=== PATIENT | female | born 1935 | race Caucasian/White ===

== ENCOUNTER 2016-07-16 16:20 | Inpatient (IN) | payer MEDICARE ==
[2016-07-16] MEDS ORDERED: Morphine INJ* 4 MG/ML 1 ML CARPUJECT IV ONE (16:36)
[2016-07-16] MEDS ORDERED: Ondansetron INJ* 2 MG/ML VIAL IV ONE (16:38)
[2016-07-16] MEDS ORDERED: Ondansetron INJ* 2 MG/ML VIAL IV PRN (16:52)
[2016-07-16] MEDS ORDERED: Acetaminophen TAB* 325 MG PO PRN (16:52)
[2016-07-16] MEDS ORDERED: NS 0.9% 1000 ML* 1,000 ML IV SCH (17:00)
[2016-07-16 17:28] LABS: Hematocrit 40 % (35-47); Hemoglobin 13.2 g/dl (12.0-16.0); Mean Corpuscular HGB Conc 33 g/dl (31-36); Mean Corpuscular Hemoglobin 31 pg (27-31); Mean Corpuscular Volume 92 fL (80-97); Mean Platelet Volume 8 um3 (7.4-10.4); Red Blood Count 4.31 10^6/ul (4.0-5.4); Red Cell Distribution Width 14 % (10.5-15); White Blood Count 6.1 10^3/ul (3.5-10.8)
[2016-07-16] MEDS ORDERED: Albuterol 2.5 MG/3 ML NEB.SOL* (0.083%) INH PRN (17:30)
[2016-07-16 17:42] LABS: Albumin 3.9 g/dL (3.2-5.2); BUN/Creatinine Ratio 16.7 (8-20); EGFR African American 83.3 (>60); EGFR Non-African American 64.8 (>60); Globulin 2.4 g/dL (2-4); Total Bilirubin 0.5 mg/dL (0.2-1.0); Total Protein 6.3 g/dL (6.4-8.9)
--- NOTE | 2016-07-16 18:34 | ED ---
Orlando Rios Erika, scribed for Asha Clayton MD on 07/16/16 at 1708 . 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 She reports constant pain in the anterior right hip, and state that the leg appears rotated. PSHx valve replacement - porcine. She denies taking a blood thinner. She does report taking metoprolol, albuterol , and Spiriva. Pt lives at the [facility], is a former smoker, and does not drink. Pt is followed by Dr. Blunt. - History of Current Complaint Stated Complaint: HIP/LEG PAIN Time Seen by Provider: 07/16/16 16:30 Hx Obtained From: Patient Mechanism Of Injury: Fall From A Standing Position Onset of Pain: Prior to Arrival Onset/Duration: Still Present Severity Currently: Moderate Timing: Constant Location: Is Discrete @ - right hip Aggravating Factor(s): Movement Able to Bear Weight: No - Allergies/Home Medications Allergies/Adverse Reactions: Allergies Allergy/AdvReac Type Severity Reaction Status Date / Time No Known Allergies Allergy Verified 09/30/14 18:40 Home Medications: Home Medications Metoprolol Succinate XL TAB* [Toprol XL TAB*] 25 mg PO DAILY 07/16/16 [History Confirmed 07/16/16] Tiotropium CAP.INH* [Spiriva CAP.INH*] 1 cap.inh INH DAILY 07/16/16 [History Confirmed 07/16/16] PMH/Surg Hx/FS Hx/Imm Hx Cardiovascular History: Reports: Hx Hypertension, Other Cardiovascular Problems/ Disorders - Open heart surgery Respiratory History: Reports: Hx Asthma, Hx Chronic Obstructive Pulmonary Disease (COPD) Sensory History: Reports: Hx Contacts or Glasses - reading glasses Opthamlomology History: Reports: Hx Contacts or Glasses - reading glasses - Surgical History Surgery Procedure, Year, and Place: Open heart surgery 04/2010 - Family History Known Family History: Positive: Respiratory Disease - Social History Alcohol Use: None Substance Use Type: Reports: None Smoking Status (MU): Former Smoker Review of Systems Negative: Fever Positive: Arthralgia - R hip with rotation All Other Systems Reviewed And Are Negative: Yes Physical Exam Triage Information Reviewed: Yes Vital Signs On Initial Exam: Temp Pulse Resp BP Pulse Ox 98.8 F 70 18 171/86 93 07/16/16 16:25 07/16/16 16:25 07/16/16 17:17 07/16/16 16:25 07/16/16 16:25 Vital Signs Reviewed: Yes Appearance: Positive: Well-Appearing, No Pain Distress Skin: Positive: Warm, Skin Color Reflects Adequate Perfusion, Dry Eyes: Positive: EOMI, GENO ENT: Positive: Pharynx normal, TMs normal Neck: Positive: Supple, Nontender Respiratory/Lung Sounds: Positive: Clear to Auscultation, Breath Sounds Present. Negative: Rales, Rhonchi, Wheezes Cardiovascular: Positive: RRR, Other - No gallops. Negative: Murmur, Rub Abdomen Description: Positive: Nontender, Soft, Other: - No rebound. Negative: Distended, Guarding Bowel Sounds: Positive: Present Musculoskeletal: Positive: Other - Hip externally rotated with anterior pain Neurological: Positive: Sensory/Motor Intact, Alert, Oriented to Person Place, Time, Other - CN II-XII intact Psychiatric: Positive: Affect/Mood Appropriate Diagnostics - Vital Signs Vital Signs Temp Pulse Resp BP Pulse Ox 07/16/16 16:25 98.8 F 70 16 171/86 93 - Laboratory Result Diagrams: 07/16/16 17:08 07/16/16 17:08 Lab Statement: Any lab studies that have been ordered have been reviewed, and results considered in the medical decision making process. - Radiology CXR Radiology Interpretation Completed By: ED Physician - Sternal wires. Tortuous aorta. Otherwise non-acute R hip XR Radiology Interpretation Completed By: ED Physician - intertrochanteric fracture - EKG 18:18 Cardiac Rate: NL - at 74 bpm EKG Rhythm: Sinus Rhythm ST Segment: Non-Specific Ectopy: None EKG Interpretation: Inferior Q waves EKG Comparison: No Significant Change - from 10/01/2015 Lower Extremity Course/Dx - Course Course Of Treatment: 81 yo female with mechanical fall sustaining right intertrochanteric fracture. Pt admitted by hospitalist, Dr. Peguero the orthopedist is aware of the admission - Diagnoses Provider Diagnoses: Hip fracture - Physician Notifications Discussed Care of Patient With: Dr. Jacob (hospitalist) at 16:49 - agrees to admit Discharge - Discharge Plan Condition: Stable Disposition: ADMITTED TO [facility] documentation as recorded by the Orlando chavez Erika accurately reflects the service I personally performed and the decisions made by me, Asha Clayton MD.
--- NOTE | 2016-07-16 18:34 | RAD ---
INDICATION: Right hip injury. COMPARISON: There are no prior studies available for comparison. TECHNIQUE: An AP view of the pelvis and frontal and lateral views of the right hip were obtained. FINDINGS: The bones are osteopenic. There is a displaced intertrochanteric fracture of the right femur. The fracture fragments are and there is varus angulation. IMPRESSION: DISPLACED ANGULATED INTERTROCHANTERIC FRACTURE OF THE RIGHT FEMUR.
--- NOTE | 2016-07-16 18:37 | RAD ---
INDICATION: Right femur fracture trauma. COMPARISON: Comparison is made with a prior chest x-ray study from September 30, 2014. TECHNIQUE: A PA view of the chest was obtained. FINDINGS: The patient is status post sternotomy. The heart is moderately enlarged. The lungs are hyperinflated. There are minimal linear densities at the right lung base most consistent with atelectasis or scarring. The lungs are otherwise clear. No pleural effusion is seen. IMPRESSION: POSTSURGICAL CHANGES, CARDIOMEGALY, NO EVIDENCE FOR ACUTE FINDING.
[2016-07-16] MEDS: Morphine INJ* 2 MG/ML 1 ML CARPUJECT IV PRN ×2 (19:26→21:55)
[2016-07-16] MEDS: oxyCODONE/Acetamin 5/325 MG* TAB PO PRN (19:36)
[2016-07-16] MEDS: Albuterol/Ipratropium NEB.SOL* Albuterol 2.5 MG/Ipratropium 0.5 MG 3 ML INH SCH ×2 (19:54→19:55)
--- NOTE | 2016-07-16 21:57 | HP ---
HISTORY AND PHYSICAL: DATE OF ADMISSION: 07/16/16 PRIMARY CARE PROVIDER: Dr. Blunt. ATTENDING PHYSICIAN WHILE IN THE HOSPITAL: Bhavin Jacob MD * (report dictated by García Blackman NP). CONSULTING ORTHOPEDIST: Dr. Peguero. CHIEF COMPLAINT: 1. Fall. 2. Right hip pain. HISTORY OF PRESENT ILLNESS: Mrs. Hairston is an 81-year-old female patient that came in to the hospital today after she unfortunately sustained a fall when she was walking to throw something away outside. She states that the sidewalk that she was on was uneven. She lost her footing, she fell, landed on her hip. She did not hit her head. She says that she was immediately in pain. Two bystanders found her, called 911 and she came to the hospital. There was an obvious deformity to that right leg. She denies any worsening, shortness of breath, states she always feels somewhat shortness of breath and she has COPD, but is not on oxygen and is not on chronic steroids. She says that she can typically walk up a flight of stairs and does not get any chest discomfort. She denies having any recent weight gain and denies having any recent fevers or chills, but does admit to having a cough, but she says the cough is chronic in nature and is nonproductive. She was evaluated in the ER, there was an obvious hip deformity and the hospitalist service was asked to evaluate for admission. PAST MEDICAL HISTORY: Significant for: 1. COPD. 2. Hypertension. 3. History of tremors. 4. History of PFO. 5. Tuberculosis in the past. 6. Pneumonia in the past. 7. History of diastolic CHF. Last EF is 50% to 55%. 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 HOME MEDICATIONS: Include: 1. Avapro 150 mg p.o. daily. 2. Aspirin 162 mg daily. 3. Metoprolol 25 mg daily. 4. Spiriva 1 capsule inhaled daily. 5. Ventolin 2.5 mg inhaled every 4 hours. ALLERGIES TO MEDICATIONS: Include no known drug allergies. FAMILY HISTORY: Her father had TB. SOCIAL HISTORY: She is a former smoker. She does not drink alcohol. She lives at [facility]. Surrogate decision maker is Chance. REVIEW OF SYSTEMS: There is no documented fever. She denied having any significant weight change. There was no double vision. There is no ear discharge. There is no rhinorrhea. There is no sore throat. No thyroid enlargement. She denies having any chest pain. There is no orthopnea. No nocturnal dyspnea. There is no shortness of breath at rest. There is no nausea , no vomiting. No dysuria. No frequency. No loss of consciousness. No pruritus and no skin ulcerations. Review of 14 systems completed, all others negative. PHYSICAL EXAMINATION GENERAL: At this time, Mrs. Hairston is an 81-year-old female patient. She comes into the ER today with complaints of fall. She appears well nourished, well developed, does not appear to be in any acute distress. VITAL SIGNS: Blood pressure 171/86 with a pulse of 70, respirations 18, O2 sat 93%, and temperature 98.8. HEENT: Head is atraumatic and normocephalic. Eyes; EOMs are intact. Sclerae anicteric and not pale. Throat: Oral mucosa appears to be moist. No oropharyngeal erythema. NECK: Supple. LUNGS: Diminished in the bases, otherwise clear. It is a limited exam as she was unable to sit forward due to the pain in her hip. HEART: Heart sounds S1 and S2. Regular rate and rhythm. No murmurs, rubs, or gallops. ABDOMEN: Soft, flat, nontender. Bowel sounds are present. EXTREMITIES: Pulses were 2+ throughout. The right lower extremity was externally rotated, in addition to this was shortened. Distal CSM checks were intact. NEUROLOGIC: She is awake, alert, and oriented x3. Tongue midline. Licensed Nuclear Control Room Operator are equal. No gross focal deficits. SKIN: Grossly intact. LABORATORY DATA AND DIAGNOSTIC STUDIES: Today revealed a WBC of 6.1, RBC of 4.31, hemoglobin 13.2, hematocrit of 40, platelet count of 148. Her INR was 0.88. PTT at 27.1. Sodium 136, potassium of 4, chloride of 102, bicarb 30, BUN 14, creatinine of 0.84, glucose 98. Calcium 9.0. Total bili 0.5. AST 16, ALT 14, albumin was 3.9. Chest x-ray and EKG are pending. Hip x-ray is pending. Old medical records were reviewed. ASSESSMENT AND PLAN: Mrs. Hairston is an 81-year-old female patient coming into the ER today with complaints of fall, now found to have an obvious right hip deformity. She will be admitted under inpatient status for: 1. Presumed hip fracture. At this point, x-rays are pending but it clearly appears that she must have sustained a hip fracture. We will get x-rays and Orthopedics has been consulted. We will await the films. In terms of perioperative risk stratification, I do believe that we will go ahead and get an echo because of the history of aortic valve stenosis. We will check an EKG, in addition to this get a chest x-ray. If these are stable, we could proceed to the OR tomorrow and will continue to follow. 2. Hypertension. Continue her beta-dallas. Hold the Avapro and we can restart in the postoperative setting. 3. History of patent foramen ovale. Again, follow with her primary. 4. History of congestive heart failure. Does not appear to be in acute failure. Appears to be diastolic. We will need to monitor this in the postoperative phase. 5. Chronic obstructive pulmonary disease. Again this is her biggest risk with recovery, but she does not appear to have severe chronic obstructive pulmonary disease. She is no longer smoking. She is not on O2. In addition to this, she is not on chronic steroids. I will continue her nebs and then postoperatively aggressive pulmonary toileting. 6. DVT prophylaxis: She was placed on heparin subcu. 7. Fluids, electrolytes, nutrition: She can have a regular diet and then n.p.o. after midnight. 8. Code status: She is a full code. TIME SPENT: Time spent on the admission was 60 minutes; greater than half the time was spent [id number] with the patient obtaining my history and physical, other half of the time spent going over the plan of care with the patient and implementing plan of care. I did discuss the plan of care with my attending, Dr. Jacob, he is in agreement. GARCÍA BLACKMAN NP CC: Dr. Merlene MD; Dr. Peguero * [id number]/[facility] #: [id number] [facility] MEDICAL CENTERGus
[2016-07-16] MEDS: Heparin VIAL(*) 5000 UNITS/ML VIAL (FIVE THOUSAND) SUBCUT SCH (22:00)
[2016-07-17] MEDS: Albuterol/Ipratropium NEB.SOL* Albuterol 2.5 MG/Ipratropium 0.5 MG 3 ML INH SCH ×7 (00:44→23:17)
[2016-07-17] MEDS: NS 0.9% 1000 ML* 1,000 ML IV SCH ×2 (00:55→11:11)
[2016-07-17] MEDS: oxyCODONE/Acetamin 5/325 MG* TAB PO PRN (01:00)
[2016-07-17] MEDS: Heparin VIAL(*) 5000 UNITS/ML VIAL (FIVE THOUSAND) SUBCUT SCH ×2 (05:37→15:22)
[2016-07-17 07:00] LABS: Hematocrit 38 % (35-47); Hemoglobin 12.6 g/dl (12.0-16.0); Mean Corpuscular HGB Conc 33 g/dl (31-36); Mean Corpuscular Hemoglobin 31 pg (27-31); Mean Corpuscular Volume 93 fL (80-97); Mean Platelet Volume 8 um3 (7.4-10.4); Red Blood Count 4.09 10^6/ul (4.0-5.4); Red Cell Distribution Width 13 % (10.5-15); White Blood Count 6.1 10^3/ul (3.5-10.8)
[2016-07-17] MEDS: Tiotropium CAP.INH* CAP.INH/18 MCG (USE ORDER SET !) INH SCH (07:11)
[2016-07-17 07:17] LABS: BUN/Creatinine Ratio 19.2 (8-20); Calcium 8.5 mg/dL (8.6-10.3); EGFR African American 97.9 (>60); EGFR Non-African American 76.1 (>60); Potassium 4.3 mmol/L (3.5-5.0)
[2016-07-17] MEDS: Morphine INJ* 2 MG/ML 1 ML CARPUJECT IV PRN ×2 (08:58→12:22)
[2016-07-17] MEDS ORDERED: Spiriva Inhaler DEVICE* 1 EACH DEVICE INH ONE (09:00)
[2016-07-17] MEDS ORDERED: Metoprolol Succinate XL TAB* 25 MG PO SCH (09:00)
[2016-07-17] MEDS: Aspirin Low Dose CHEW TAB* 81 MG PO SCH (09:01)
--- NOTE | 2016-07-17 12:33 | ECHO ---
Patient: HELENA PELAEZ [facility] Rec#: [id number] : 1935 Date: 07/17/2016 Age: 81y Height: 167 cm / 65.7 in Weight: 77 kg / 169.7 lbs Sex: F BSA: 1.86 Room#: 336 Admit Date#: 07/16/2016 Type: Inpatient Referring: García Blackman NP Reading: Rasheed Roque DO Reading: Rasheed Roque DO Safety Assistant: Devante Pereyra RDCS Transthoracic Echocardiogram Indication: AVR BP: 135/52 HR: 80 Rhythm: NSR Findings History: PORCINE AVR,CHF,COPD,asthma, HTN Technical Comments: The study quality is good. Left Ventricle: The left ventricular chamber size is normal. Moderate concentric left ventricular hypertrophy is observed. There is normal left ventricular systolic function. The estimated ejection fraction is 60-65%. Ventricular septal wall motion has a post-operative appearance. Abnormal left ventricular diastolic function is observed. Left Atrium: The left atrium is moderate to severely dilated. Right Ventricle: The right ventricular chamber size and systolic function are within normal limits. Right Atrium: The right atrium is moderately dilated. Aortic Valve: The aortic valve structure is not well visualized. There is mild to moderate aortic regurgitation. that appears to be paravalvular and is highly eccentric and may be underestimated in severity. The mean gradient of the aortic valve is 38 mmHg. The peak instantaneous gradient of the aortic valve is 70.4 mmHg. Unable to post-process to calculate acceleration time. VTI DVT 0.25 The highest aortic valve velocity was obtained with the standard probe from the A5C view. A porcine bio-prosthetic aortic valve is present. There is a [address] saritha tissue valve by history Mitral Valve: There is posterior mitral annular calcification.that is moderate The mitral valve leaflets are mildly thickened. There is mild mitral regurgitation. Tricuspid Valve: There is mild tricuspid regurgitation. There is evidence of mild to moderate pulmonary hypertension. There is no tricuspid stenosis. Pulmonic Valve: The pulmonic valve appears normal in structure and function. There is trace to mild pulmonic regurgitation. There is no pulmonic stenosis. Pericardium: There is no pericardial effusion. Aorta: There is no dilatation of the ascending aorta. There is no dilatation of the aortic arch. There is no dilation of the aortic root. Pulmonary Artery: The main pulmonary artery is not well visualized. Venous: The inferior vena cava appears normal in size. There is a greater than 50% respiratory change in the inferior vena cava dimension. Conclusions The left ventricular chamber size is normal. Moderate concentric left ventricular hypertrophy is observed. There is normal left ventricular systolic function. The estimated ejection fraction is 60-65%. The left atrium is moderate to severely dilated. The right ventricular chamber size and systolic function are within normal limits. The right atrium is moderately dilated. A porcine bio-prosthetic aortic valve is present. There is stable paravalvular regurgitation and elevated but stable mean/peak gradients from 09/2014 suggesting stable aortic valve function. There is evidence of mild to moderate pulmonary hypertension. Compared to prior study from 09/2014, no significant changes noted. Measurements Name Value Normal Range RVIDd (AP) 2D 2.4 cm (0.9 - 2.6) RVDdMajor (2D) 2.6 cm (2.2 - 4.4) RAd ISD 4CH 5.9 cm (3.4 - 4.9) RA (A4C)W 4.5 cm (2.9 - 4.6) IVSd (2D) 1.6 cm (0.6 - 1) LVPWd (2D) 1.4 cm (0.6 - 1) LVIDd (2D) 4.8 cm (3.6 - 5.4) LVIDs (2D) 3.8 cm - LV FS (2D) 20 % (25 - 45) Aortic Annulus 2 cm (1.4 - 2.6) Ao root diameter (2D) 2.8 cm (2.1 - 3.5) Ascending Ao 3.4 cm (2.1 - 3.4) Aortic arch 2.8 cm (1.8 - 3.4) LA dimension (AP) 2D 4.7 cm (2.3 - 3.8) LAd ISD 4CH 6.5 cm (2.9 - 5.3) LA ISD 4CH W 4.9 cm (2.5 - 4.5) Name Value Normal Range LA ESV SP 4CH (A/L) 120 ml - LA ESV SP 2CH (A/L) 114 ml - LA ESV BP (A/L) 123 ml - LA ESV BP (A/L) index 66.11 ml/m2 - LA ESV SP 4CH (MOD) 108 ml - LA ESV SP 2CH (MOD) 108 ml - Name Value Normal Range MV E-wave Vmax 0.87 m/sec - MV deceleration time 118 msec - MV A-wave Vmax 0.94 m/sec - MV E:A ratio 0.92 ratio - LV septal e' Vmax 17.4 m/sec - LV lateral e' Vmax 12.4 m/sec - LV E:e' septal ratio 0.05 ratio - LV E:e' lateral ratio 0.07 ratio - Name Value Normal Range AV Vmax 4.2 m/sec - AV VTI 88 cm - AV peak gradient 70.4 mmHg - AV mean gradient 38 mmHg - LVOT diameter 2.2 cm - LVOT Vmax 0.8 m/sec - GRUPO (continuity Vmax) 0.8 cm2 - GRUPO (continuity VTI) 0.87 cm2 - Name Value Normal Range TR Vmax 3.6 m/sec - TR peak gradient 51 mmHg - RVSP 47 mmHg - IVC diameter 1.75 cm - Name Value Normal Range PV Vmax 0.99 m/sec - PV peak gradient 3.95 mmHg -
[2016-07-17] MEDS ORDERED: Famotidine IV* 10 MG/ML 2 ML (20 mg) IV ONE (15:18)
[2016-07-17] MEDS ORDERED: Buffered Lidocaine 1% SYR 3ML* 3 ML/SYR SYRINGE INTRADERM ONE (15:18)
[2016-07-17] MEDS ORDERED: Dexamethasone IV* 4 MG/ML 1 ML (4 MG) IV SLOW PU ONE (15:18)
[2016-07-17] MEDS ORDERED: Ondansetron INJ* 2 MG/ML VIAL IV PRN ×2 (15:20→19:26)
[2016-07-17] MEDS ORDERED: fentaNYL* 50 MCG/ML 2 ML VIAL (100 MCG VIAL) IV PRN (15:20)
[2016-07-17] MEDS ORDERED: PROCHLORPERAZINE INJ 5 MG/ML 2 ML VIAL IV PRN (15:20)
[2016-07-17] MEDS ORDERED: DiMENhydriNATE IV* 50 MG/ML VIAL IV PUSH PRN (15:20)
[2016-07-17] MEDS ORDERED: Bupivacaine 0.5% W/EPI SDV* 30 ML VIAL ONE (16:34)
[2016-07-17] MEDS ORDERED: Midazolam* 1 MG/ML 5 ML VIAL (5 MG) ONE (16:38)
[2016-07-17] MEDS ORDERED: Morphine PF AMP (0.5MG/ML)* 5 MG/10 ML AMP ONE (16:38)
[2016-07-17] MEDS ORDERED: fentaNYL* 50 MCG/ML 2 ML VIAL (100 MCG VIAL) ONE ×2 (16:38→17:45)
[2016-07-17] MEDS ORDERED: KETAMINE HCL* 50 MG/ML 10 ML VIAL ONE (16:39)
[2016-07-17] MEDS ORDERED: ceFAZolin 2 GM PREMIX (*) 2 GM/50 ML BAG IVPB ONE (16:47)
[2016-07-17] MEDS ORDERED: HYDROmorphone INJ* 1 MG/ML CARPUJECT SYRINGE ONE ×2 (18:19→18:52)
[2016-07-17] MEDS ORDERED: oxyCODONE/Acetamin 5/325 MG* TAB PO PRN (19:26)
[2016-07-17] MEDS ORDERED: diPHENhydraMINE IV* 50 MG/ML 1 ml VIAL (BENADRYL) IV PRN (19:26)
[2016-07-17] MEDS ORDERED: Magnesium Hydroxide LIQ* 30 ML UDC PO PRN (19:26)
[2016-07-17] MEDS ORDERED: oxyCODONE TAB* 5 MG TAB PO PRN (19:26)
--- NOTE | 2016-07-17 20:00 | PN ---
Subjective Date of Service: 07/17/16 Interval History: Patient seen and examined at bedside in PACU. Pt is alert and confused. Denies pain. Family History: Unchanged from Admission Social History: Unchanged from Admission Past Medical History: Unchanged from Admission Objective Active Medications: Acetaminophen (Tylenol Tab*) 650 mg PO Q4H PRN Reason: FEVER/PAIN Albuterol (Ventolin 2.5 Mg/3 Ml Neb.Raine*) 2.5 mg INH Q2H PRN Reason: SOB/ WHEEZING Albuterol/Ipratropium (Duoneb Neb.Raine*) 1 neb INH [id number] AWAKE JOSI Aspirin (Aspirin Low Dose Tab*) 162 mg PO DAILY JOSI Diphenhydramine HCl (Benadryl Iv*) 25 mg IV Q6H PRN Reason: itching or insomnia Docusate Sodium (Colace Cap*) 100 mg PO BID [facility] Enoxaparin Sodium (Lovenox(*)) 40 mg SUBCUT Q24H [facility] Heparin Sodium (Porcine) (Heparin Vial(*)) 5,000 units SUBCUT Q8HR JOSI Cefazolin Sodium/Dextrose (Kefzol 1 Gm In Dextrose Duplex (*)) 1 gm in 50 mls @ 200 mls/hr IVPB Q6H [facility] Lactated Ringer's (Lactated Ringers 1000 Ml Bag*) 1,000 mls @ 100 mls/hr IV PER RATE [facility] Magnesium Hydroxide (Milk Of Magnesia Liq*) 30 ml PO Q6H PRN Reason: constipation Metoprolol Succinate (Toprol Xl Tab*) 25 mg PO DAILY [facility] Morphine Sulfate (Morphine Inj (Syringe)*) 2 mg IV Q2H PRN Reason: PAIN Multivitamins (Theragran Tab*) 1 tab PO DAILY [facility] Ondansetron HCl (Zofran Inj*) 4 mg IV Q6H PRN Reason: nausea Oxycodone HCl (Roxycodone Tab*) 10 mg PO Q4H PRN Reason: PAIN - SEVERE Oxycodone/Acetaminophen (Percocet 5/325 Tab*) 1 tab PO Q4H PRN Reason: PAIN Oxycodone/Acetaminophen (Percocet 5/325 Tab*) 2 tab PO Q4H PRN Reason: PAIN - MODERATE Tiotropium Taft (Spiriva Cap.Inh*) 1 cap INH DAILY [facility] Vital Signs 07/16/16 07/16/16 07/16/16 19:55 20:26 21:36 Temperature Pulse Rate 71 Respiratory 20 18 18 Rate Blood Pressure (mmHg) O2 Sat by Pulse 95 Oximetry 07/16/16 07/16/16 07/16/16 21:55 22:55 23:52 Temperature 97.7 F Pulse Rate 69 Respiratory 18 16 17 Rate Blood Pressure 121/65 (mmHg) O2 Sat by Pulse 97 Oximetry 07/17/16 07/17/16 07/17/16 01:00 01:34 03:00 Temperature Pulse Rate Respiratory 20 20 Rate Blood Pressure (mmHg) O2 Sat by Pulse 96 Oximetry 07/17/16 07/17/16 07/17/16 03:39 07:13 07:50 Temperature 97.4 F Pulse Rate 63 75 Respiratory 17 14 18 Rate Blood Pressure 135/52 (mmHg) O2 Sat by Pulse 98 96 Oximetry 07/17/16 07/17/16 07/17/16 07:51 08:58 11:00 Temperature 98.0 F Pulse Rate 76 70 Respiratory 16 20 14 Rate Blood Pressure 130/65 (mmHg) O2 Sat by Pulse 96 100 Oximetry 07/17/16 07/17/16 07/17/16 12:22 12:28 13:22 Temperature 97.8 F Pulse Rate 76 Respiratory 20 16 16 Rate Blood Pressure 138/74 (mmHg) O2 Sat by Pulse 92 Oximetry 07/17/16 07/17/16 15:20 15:22 Temperature Pulse Rate 74 86 Respiratory 14 Rate Blood Pressure 151/82 (mmHg) O2 Sat by Pulse 99 86 Oximetry Oxygen Devices in Use Now: Nasal Cannula - 4L Appearance: NAD, laying in bed Eyes: No Scleral Icterus, PERRLA Ears/Nose/Mouth/Throat: NL Teeth, Lips, Gums, Mucous Membranes Moist Neck: NL Appearance and Movements; NL JVP, Trachea Midline Respiratory: Symmetrical Chest Expansion and Respiratory Effort, Clear to Auscultation Cardiovascular: RRR, - - 2/3 systolic murmur heard best at the right sternal border Abdominal: NL Sounds; No Tenderness; No Distention Skin: - - Dressing to right hip clean, dry and intact Neurological: - - Alert and Confused Lines/Tubes/Other Access: Clean, Dry and Intact Marte - patent, draining clear yellow urine, Clean, Dry and Intact Peripheral IV - site benign Result Diagrams: 07/17/16 06:21 07/17/16 06:21 Assess/Plan/Problems-Billing Assessment: Ms. Hairston is an 81 yo female with PMH significant for COPD, HTN, PFO, diastolic heart failure, S/P AV replacement who presented to the emergency room after a fall with complaints of right hip pain and was found to have a right intertrochanteric fx. - Patient Problems (1) Fracture, intertrochanteric, right femur Code(s): S72.141A - DISPLACED INTERTROCHANTERIC FRACTURE OF RIGHT FEMUR, INIT SNOMED Code(s): 456487790 Comment: - POD, s/p IM nail with Dr. Jon - Trend HH - PT/OT eval - Pain management and bowel regime (2) Heart failure Code(s): I50.9 - HEART FAILURE, UNSPECIFIED SNOMED Code(s): 14895068 Comment: - Diastolic heart failure, echo shows EF 60-65% - Monitor (3) History of hypertension Code(s): Z86.79 - PERSONAL HISTORY OF OTHER DISEASES OF THE CIRCULATORY SYSTEM SNOMED Code(s): 070854665 Comment: - Hypotensive postop - Continue Metoprolol with hold parameters - Continue to home Avapro (4) History of COPD Code(s): Z87.09 - PERSONAL HISTORY OF OTHER DISEASES OF THE RESPIRATORY SYSTEM SNOMED Code(s): 539314684 Comment: - Stable - Continue home medications (5) DVT prophylaxis Code(s): YCO8515 - SNOMED Code(s): 572847491 Comment: - Lovenox per Ortho (6) Full code status Code(s): Z78.9 - OTHER SPECIFIED HEALTH STATUS SNOMED Code(s): 641108635 Status and Disposition: Inpatient. Pt will likely need ELEN.
--- NOTE | 2016-07-17 20:00 | RAD ---
INDICATION: Right hip gamma nail, intraoperative guidance. COMPARISON: Comparison is made with a prior x-ray study of the right hip from July 16, 2016. TECHNIQUE: 1 minute and 45 seconds of intermitted fluoroscopic were provided and 14 spot films of the right hip were obtained in the operating room. FINDINGS: The films demonstrate placement of an intramedullary shemar and gamma nail within the right femoral head. The bones are in normal alignment. IMPRESSION: INTRAOPERATIVE CONTROL FILMS. CPT II Codes: 6045F
[2016-07-17 20:38] LABS: Hematocrit 35 % (35-47); Hemoglobin 11.5 g/dl (12.0-16.0)
[2016-07-17] MEDS ORDERED: Enoxaparin(*) 40 MG/0.4 ML SYR SUBCUT SCH (21:00)
[2016-07-17] MEDS ORDERED: Hetastarch in NS* 500 ML IV ONE (21:17)
[2016-07-17] MEDS ORDERED: Hetastarch 6%* GIVE 500 ML IV ONE (22:00)
[2016-07-17 23:00] LABS: Hematocrit 28 % (35-47); Hemoglobin 9.4 g/dl (12.0-16.0); Mean Corpuscular HGB Conc 33 g/dl (31-36); Mean Corpuscular Hemoglobin 31 pg (27-31); Mean Corpuscular Volume 93 fL (80-97); Mean Platelet Volume 8 um3 (7.4-10.4); Red Blood Count 3.07 10^6/ul (4.0-5.4); Red Cell Distribution Width 13 % (10.5-15); White Blood Count 8.4 10^3/ul (3.5-10.8)
[2016-07-17 23:01] LABS: Add Diff/Slide Review? Slide Review Added; Comments Flag Yes
[2016-07-17] MEDS ORDERED: Enoxaparin(*) 40 MG/0.4 ML SYR ONE (23:45)
[2016-07-17] MEDS: Docusate CAP* 100 MG PO SCH (23:50)
[2016-07-18] MEDS: Enoxaparin(*) 40 MG/0.4 ML SYR SUBCUT SCH (00:21)
[2016-07-18] MEDS: ceFAZolin 1 GM in Dextrose (*) 1 GM/50 ML BAG IVPB SCH ×5 (00:42→23:03)
[2016-07-18] MEDS: Albuterol/Ipratropium NEB.SOL* Albuterol 2.5 MG/Ipratropium 0.5 MG 3 ML INH SCH ×4 (04:31→16:47)
[2016-07-18] MEDS ORDERED: NS 0.9% 500 ML* 500 ML IV ONE (06:00)
[2016-07-18] MEDS ORDERED: NS 0.9% 500 ML* 500 ML IV SCH (06:00)
[2016-07-18 06:07] LABS: BUN/Creatinine Ratio 20.7 (8-20); Calcium 7.6 mg/dL (8.6-10.3); EGFR African American 127.7 (>60); EGFR Non-African American 99.3 (>60); Potassium 4.1 mmol/L (3.5-5.0)
[2016-07-18 06:28] LABS: Hematocrit 25 % (35-47); Hemoglobin 8.5 g/dl (12.0-16.0)
[2016-07-18] MEDS: Metoprolol Succinate XL TAB* 25 MG PO SCH (09:20)
--- NOTE | 2016-07-18 09:34 | PN ---
Progress Note - Progress Note SOAP: Subjective: [Pt was seen sitting up in bed this morning. She states that she is doing very well. She states she has some pain in her hip but that she was expecting that. She states that her only complaint is the clear liquids that she had this morning for breakfast. Pt denies any SOB, CHest pain or calf pain. ] Objective: [General: Pt is alert, awake and oriented. Appears in no acute distress MSK: RLE: Dressing is C/D/I. Pt is able to dorsiflex and planter flex foot. Pt has 2+ DP pulse. Pt has sensation to light touch distal to incision. ] Vital Signs Temp 99.3 F 07/18/16 08:26 Pulse 81 07/18/16 09:00 Resp 20 07/18/16 09:00 BP 96/55 07/18/16 09:00 Pulse Ox 98 07/18/16 09:00 Intake & Output 07/17/16 07/18/16 07/18/16 18:59 06:59 18:59 Intake Total 3190 Output Total 300 1050 Balance -300 2140 Intake: IV Fluids 3190 LR 3190 Output: Marte 300 450 Estimated Blood Loss 600 Assessment: [S/P R intertrochanteric fracture ORIF POD1] Plan: [Continue Abx Continue DVT prophylaxis Start PT/OT PWB RLE ] <Xavier Roman - Last Filed: 07/18/16 09:35> - Progress Note SOAP: Subjective: Pt admitted to the ICU postop because of low BPs in PACU. Received IVF but no PRBCs. Comfortable, eating well this morning, minimal pain Objective: RLE dressing cdi nvid Assessment: POD 1 R hip ORIF IMN Plan: - Follow H/H daily - Tx to floor when BP nl, per ICU staff - Lvx anticoag - PT PWB RLE - pain control <Aldo Jon - Last Filed: 07/18/16 11:44>
--- NOTE | 2016-07-18 09:44 | PN ---
Subjective Date of Service: 07/18/16 Interval History: Pt is feeling ok. She states she does not know if she has pain in her hip because she has not moved. She does c/o her bottom being sore. She states her SOB is at baseline. Objective Active Medications: Acetaminophen (Tylenol Tab*) 650 mg PO Q4H PRN PRN Reason: FEVER/PAIN Albuterol (Ventolin 2.5 Mg/3 Ml Neb.Raine*) 2.5 mg INH Q2H PRN PRN Reason: SOB/WHEEZING Albuterol/Ipratropium (Duoneb Neb.Raine*) 1 neb INH [id number] [facility] Last Admin: 07/18/16 04:31 Dose: Not Given Aspirin (Aspirin Low Dose Tab*) 162 mg PO DAILY [facility] Last Admin: 07/17/16 09:01 Dose: Not Given Docusate Sodium (Colace Cap*) 100 mg PO BID [facility] Last Admin: 07/17/16 23:50 Dose: Not Given Enoxaparin Sodium (Lovenox(*)) 40 mg SUBCUT 0000 [facility] Last Admin: 07/18/16 00:21 Dose: Not Given Cefazolin Sodium/Dextrose (Kefzol 1 Gm In Dextrose Duplex (*)) 1 gm in 50 mls @ 200 mls/hr IVPB Q6H [facility] Last Admin: 07/18/16 05:51 Dose: 200 mls/hr Sodium Chloride (Ns 0.9% 500 Ml Bag*) 500 mls @ 1,000 mls/hr IV .BOLUS [facility] Magnesium Hydroxide (Milk Of Magnesia Liq*) 30 ml PO Q6H PRN PRN Reason: constipation Metoprolol Succinate (Toprol Xl Tab*) 25 mg PO DAILY [facility] Last Admin: 07/18/16 09:20 Dose: Not Given Morphine Sulfate (Morphine Inj (Syringe)*) 2 mg IV Q2H PRN PRN Reason: PAIN Last Admin: 07/17/16 12:22 Dose: 2 mg Multivitamins (Theragran Tab*) 1 tab PO DAILY [facility] Ondansetron HCl (Zofran Inj*) 4 mg IV Q6H PRN PRN Reason: nausea Oxycodone/Acetaminophen (Percocet 5/325 Tab*) 1 tab PO Q4H PRN PRN Reason: PAIN Last Admin: 07/17/16 01:00 Dose: 1 tab Oxycodone/Acetaminophen (Percocet 5/325 Tab*) 2 tab PO Q4H PRN PRN Reason: PAIN - MODERATE Tiotropium [place] (Spiriva Cap.Inh*) 1 cap INH DAILY [facility] Last Admin: 07/17/16 07:11 Dose: 1 cap.inh Vital Signs 07/17/16 07/17/16 07/17/16 11:00 12:22 12:28 Temperature 97.8 F Pulse Rate 70 76 Respiratory 14 20 16 Rate Blood Pressure 138/74 (mmHg) O2 Sat by Pulse 100 92 Oximetry 07/17/16 07/17/16 07/17/16 13:22 15:20 15:22 Temperature Pulse Rate 74 86 Respiratory 16 14 Rate Blood Pressure 151/82 (mmHg) O2 Sat by Pulse 99 86 Oximetry 07/17/16 07/17/16 07/17/16 19:30 19:35 19:40 Temperature 97.2 F Pulse Rate 81 79 84 Respiratory 16 19 19 Rate Blood Pressure 88/56 92/80 77/49 (mmHg) O2 Sat by Pulse 98 92 90 Oximetry 07/17/16 07/17/16 07/17/16 19:45 20:00 20:15 Temperature Pulse Rate 79 75 76 Respiratory 19 18 22 Rate Blood Pressure 77/48 83/57 91/58 (mmHg) O2 Sat by Pulse 91 93 95 Oximetry 07/17/16 07/17/16 07/17/16 20:30 20:45 21:00 Temperature Pulse Rate 75 76 75 Respiratory 17 16 16 Rate Blood Pressure 94/56 90/52 91/55 (mmHg) O2 Sat by Pulse 94 94 94 Oximetry 07/17/16 07/17/16 07/17/16 21:15 21:30 21:45 Temperature 100.2 F Pulse Rate 77 85 81 Respiratory 16 24 16 Rate Blood Pressure 80/51 93/47 83/46 (mmHg) O2 Sat by Pulse 94 94 97 Oximetry 07/17/16 07/17/16 07/17/16 22:00 22:15 22:30 Temperature Pulse Rate 77 78 Respiratory 16 16 Rate Blood Pressure 89/50 85/51 90/56 (mmHg) O2 Sat by Pulse 94 93 Oximetry 07/17/16 07/17/16 07/17/16 22:32 22:45 22:56 Temperature 98 F Pulse Rate 77 80 62 Respiratory 22 14 Rate Blood Pressure 95/53 95/63 (mmHg) O2 Sat by Pulse 93 95 92 Oximetry 07/17/16 07/17/16 07/17/16 23:00 23:02 23:15 Temperature Pulse Rate 83 85 86 Respiratory 21 19 16 Rate Blood Pressure 76/45 87/42 97/47 (mmHg) O2 Sat by Pulse 94 97 93 Oximetry 07/17/16 07/17/16 07/17/16 23:18 23:30 23:46 Temperature Pulse Rate 86 87 86 Respiratory 17 21 19 Rate Blood Pressure 84/55 82/47 (mmHg) O2 Sat by Pulse 96 99 96 Oximetry 07/17/16 07/18/16 07/18/16 23:50 00:00 00:01 Temperature Pulse Rate 88 87 87 Respiratory 27 22 20 Rate Blood Pressure 88/48 90/48 (mmHg) O2 Sat by Pulse 94 95 95 Oximetry 07/18/16 07/18/16 07/18/16 00:32 00:49 01:00 Temperature Pulse Rate 86 86 85 Respiratory 20 16 17 Rate Blood Pressure 84/53 90/55 88/54 (mmHg) O2 Sat by Pulse 95 96 91 Oximetry 07/18/16 07/18/16 07/18/16 01:03 01:20 01:24 Temperature Pulse Rate 71 81 Respiratory 22 17 Rate Blood Pressure 89/51 85/53 (mmHg) O2 Sat by Pulse 95 83 96 Oximetry 07/18/16 07/18/16 07/18/16 01:30 02:00 02:08 Temperature Pulse Rate 78 86 87 Respiratory 19 20 22 Rate Blood Pressure 102/49 109/80 89/66 (mmHg) O2 Sat by Pulse 95 93 94 Oximetry 07/18/16 07/18/16 07/18/16 02:21 02:30 02:33 Temperature Pulse Rate 78 76 85 Respiratory 17 24 29 Rate Blood Pressure 99/52 87/47 88/52 (mmHg) O2 Sat by Pulse 96 97 95 Oximetry 07/18/16 07/18/16 07/18/16 03:00 03:31 03:58 Temperature Pulse Rate 79 85 Respiratory 19 19 24 Rate Blood Pressure 96/69 90/50 (mmHg) O2 Sat by Pulse 97 94 Oximetry 07/18/16 07/18/16 07/18/16 04:00 04:03 04:30 Temperature Pulse Rate 77 98 Respiratory 17 17 22 Rate Blood Pressure 88/54 79/44 (mmHg) O2 Sat by Pulse 94 96 Oximetry 07/18/16 07/18/16 07/18/16 04:31 04:46 05:00 Temperature Pulse Rate 79 73 75 Respiratory 20 16 17 Rate Blood Pressure 82/47 90/37 (mmHg) O2 Sat by Pulse 97 97 97 Oximetry 07/18/16 07/18/16 07/18/16 05:01 05:07 05:09 Temperature Pulse Rate 76 77 77 Respiratory 17 17 18 Rate Blood Pressure 84/41 87/43 84/44 (mmHg) O2 Sat by Pulse 97 96 97 Oximetry 07/18/16 07/18/16 07/18/16 05:17 05:35 06:00 Temperature Pulse Rate 75 78 81 Respiratory 17 18 18 Rate Blood Pressure 79/36 117/63 98/44 (mmHg) O2 Sat by Pulse 95 97 97 Oximetry 07/18/16 07/18/16 07/18/16 06:28 06:30 07:00 Temperature Pulse Rate 80 80 Respiratory 17 18 18 Rate Blood Pressure 88/46 80/45 (mmHg) O2 Sat by Pulse 97 97 Oximetry 07/18/16 07/18/16 07/18/16 07:05 07:30 08:00 Temperature Pulse Rate 76 80 79 Respiratory 16 17 22 Rate Blood Pressure 88/44 89/46 (mmHg) O2 Sat by Pulse 97 97 95 Oximetry 07/18/16 07/18/16 07/18/16 08:26 08:30 09:00 Temperature 99.3 F Pulse Rate 80 81 Respiratory 22 18 Rate Blood Pressure 88/48 96/55 (mmHg) O2 Sat by Pulse 98 98 Oximetry Oxygen Devices in Use Now: Nasal Cannula - 3L-94% Appearance: Elderly female sitting up in bed, NAD Eyes: No Scleral Icterus Ears/Nose/Mouth/Throat: Mucous Membranes Moist Respiratory: Symmetrical Chest Expansion and Respiratory Effort, Clear to Auscultation Cardiovascular: RRR, No Edema, - - II/ systolic murmur heard best at the RUSB Abdominal: NL Sounds; No Tenderness; No Distention Extremities: No Clubbing, Cyanosis Skin: No Rash or Ulcers, No Nodules or Sclerosis Neurological: - - [facility] Result Diagrams: 07/18/16 06:10 07/17/16 22:35 Assess/Plan/Problems-Billing Ms. Hairston is an 81 yo female with PMHx significant for COPD, HTN, PFO, diastolic heart failure, S/P AV replacement who presented to the emergency room after a fall with complaints of right hip pain and was found to have a right intertrochanteric hip fx. - Patient Problems (1) Fracture, intertrochanteric, right femur Current Visit: Yes Status: Acute Code(s): S72.141A - DISPLACED INTERTROCHANTERIC FRACTURE OF RIGHT FEMUR, INIT SNOMED Code(s): 837550155 Comment: POD #1 s/p IM nail with Dr. Jon. Management including DVT prophylaxis per orthopedics. PT/OT. She will likely needs STR-pt is concerned about finances. I will have case management talk with the patient about her benefits. (2) Acute blood loss anemia Current Visit: Yes Status: Acute Code(s): D62 - ACUTE POSTHEMORRHAGIC ANEMIA SNOMED Code(s): 842320009 Comment: H/H has trended down. I do not feel that she needs a transfusion at this time. Follow up H/H tomorrow AM. (3) HTN (hypertension) Current Visit: Yes Status: Acute Code(s): I10 - ESSENTIAL (PRIMARY) HYPERTENSION SNOMED Code(s): 95974356 Comment: Pt was hypertensive prior to surgery but since surgery she has been hypotensive. Her urine output is good. BP slightly improved this AM. Hold antihypertensives for now. Will also hold off on further IVF boluses as her mentation is good and urine output is acceptable. (4) COPD (chronic obstructive pulmonary disease) Current Visit: Yes Status: Acute Code(s): J44.9 - CHRONIC OBSTRUCTIVE PULMONARY DISEASE, UNSPECIFIED SNOMED Code(s): 27663112 Comment: No signs of exacerbation at this time. Continue inhalers and supplemental O2. She does not use O2 at home and her sats are in the low to mid 90's. Will try to wean off O2. (5) Diastolic CHF Current Visit: Yes Status: Acute Code(s): I50.30 - UNSPECIFIED DIASTOLIC ( CONGESTIVE) HEART FAILURE SNOMED Code(s): 262473111 Comment: No signs of fluid overload at this time. Monitor as she has received many boluses for hypotension. (6) DVT prophylaxis Current Visit: Yes Status: Acute Onset Date: 09/30/14 Code(s): IIW8888 - SNOMED Code(s): 414304651 Comment: June (7) Full code status Current Visit: Yes Status: Acute Onset Date: 09/30/14 Code(s): Z78.9 - OTHER SPECIFIED HEALTH STATUS SNOMED Code(s): 326524847 Status and Disposition: .
[2016-07-18] MEDS: Docusate CAP* 100 MG PO SCH ×2 (10:24→22:04)
[2016-07-18] MEDS: Aspirin Low Dose CHEW TAB* 81 MG PO SCH (10:24)
[2016-07-18] MEDS: Vitamin THERAPEUTIC TAB PO SCH (10:24)
[2016-07-18] MEDS: Tiotropium CAP.INH* CAP.INH/18 MCG (USE ORDER SET !) INH SCH (10:24)
[2016-07-18] MEDS: oxyCODONE/Acetamin 5/325 MG* TAB PO PRN (14:54)
[2016-07-18] MEDS ORDERED: NS 0.9% 1000 ML* 1,000 ML IV ONE (16:23)
[2016-07-18] MEDS: Albuterol HFA INHALER* 8 gm MDI INH SCH (22:09)
[2016-07-19] MEDS: Enoxaparin(*) 40 MG/0.4 ML SYR SUBCUT SCH ×2 (00:28→23:46)
[2016-07-19] MEDS: Albuterol HFA INHALER* 8 gm MDI INH SCH ×8 (01:00→23:52)
[2016-07-19] MEDS: oxyCODONE/Acetamin 5/325 MG* TAB PO PRN ×3 (02:45→15:41)
[2016-07-19] MEDS: ceFAZolin 1 GM in Dextrose (*) 1 GM/50 ML BAG IVPB SCH ×4 (05:47→23:47)
--- NOTE | 2016-07-19 06:04 | OP ---
OPERATIVE REPORT: DATE OF OPERATION: 07/17/16 DATE OF : 31 ATTENDING SURGEON: Aldo Jon MD RECEIVING OPERATOR: TARI Kurtz ANESTHESIOLOGIST: Dr. Freddy Knutson. ANESTHESIA: Spinal anesthesia. PRE-OP DIAGNOSIS: Right hip intertrochanteric, displaced, fracture. POST-OP DIAGNOSIS: Right hip intertrochanteric, displaced, fracture. OPERATIVE PROCEDURE: Open reduction internal fixation, right intertrochanteric hip fracture with an intramedullary nail. IV FLUIDS: See anesthesia note. ANTIBIOSIS: 2 g Ancef IV. EBL: Approximately 600 cc. COMPLICATIONS: None. SPECIMENS: None. IMPLANTS: [place] short gamma nail with a lag and locking screw. INDICATIONS FOR PROCEDURE: The patient is an 81-year-old woman, who lives alone, community ambulato r without assist device, who fell while walking on the uneven side walk on the date of admission, . She landed on her right hip when she fell, did not hit her head. Two bystanders found her, called 911, and the patient was brought to the [facility] where x-rays demonstrated a right hip displaced intertrochanteric fracture. She was admitted by the hospitalist service. She has a history of gotti tolic congestive heart failure with the last previous ejection fraction being 50% to 55%. Orthopedi c Surgery, Dr. Peguero, was consulted. The following day, a new echocardiogram showed essentially no change since prior and the medicine service determined that she was medically optimized. The patie nt opted for surgical management. DESCRIPTION OF PROCEDURE: Preoperative written consent. Operative extremity was marked in the preo perative holding. The patient was taken back to the operating room and placed on to the operating r oom table. A spinal anesthesia was placed after general sedation had been provided. The patient wa s positioned on the fracture table appropriately with a perineal post and the right leg in some trac tion. Some light traction was applied to the right lower extremity and perhaps 10 degrees of product managent intern al rotation of the right lower extremity. C-arm was brought in and showed excellent reduction in brianne th AP and lateral plain. C-arm was moved out and the right lower extremity was prepped and draped. Surgical time-out was performed. A small poke hole 8 cm proximal to the proximal tip of the greate r trochanter was made in the skin. A pin was placed through that skin incision to the greater troch anter. C-arm evaluated the position of the pin going into bone. Several adjustments were made with the pin until almost precise placement was made. A #10 blade was used to cut skin as well as hip abd uctor fascia along the pin distal to the poke hole prior incision. I was able to palpate the greate r trochanter well. I adjusted the pin position to make it perfectly ideal. I then used the proxima l femoral reamer to open up the canal. A nail was placed. The guide arm was used to place a pin fo llowed by drilling followed by a lag screw into the femoral head. This screw was compressed or rath er deep bone about it was compressed. Distal locking screw was placed through the guide. Final x-r ays were taken. Irrigated wounds. The hip abductor fascia was closed with figure-of-8 stitches usi ng Vicryl 0 suture as well as a short running stitch, irrigation. Subcutaneous tissue in all 3 incis ions was closed with buried simple stitches using Vicryl 2-0 suture. As well, one stitch was placed in the iliotibial band and second incision, deep with the Vicryl 0 suture. Skin was closed with st aples. Xeroform, 4x4s, ABDs, foam tape were placed. Of note, when the fracture site was reduced at the beginning of the case, I used the contralateral preoperative rest hip x-rays to determine what t he exact shape and orientation of the intertrochanteric region, femoral head, and neck should be. DISPOSITION: Postoperatively, the patient was brought to the PACU with plans to transfer her to the floor when medically stable. Of note, in the PACU, the patient had some low blood pressures and so was sent to the ICU overnight. She received IV fluids, but no blood products. The plan is for the patient to get IV antibiotics x24 hours postoperative followed by short course of Keflex antibiotic s. Lovenox for 4 weeks postoperatively and oral pain medications, narcotics. The patient will foll ow up with me in 10 to 14 days postoperative and will work extensively with physical therapy being p artial weightbearing, right lower extremity. [id number]/[facility] #: [id number]
[2016-07-19 07:46] LABS: Hematocrit 23 % (35-47); Hemoglobin 7.9 g/dl (12.0-16.0); Mean Corpuscular HGB Conc 34 g/dl (31-36); Mean Corpuscular Hemoglobin 31 pg (27-31); Mean Corpuscular Volume 91 fL (80-97); Mean Platelet Volume 8 um3 (7.4-10.4); Red Blood Count 2.53 10^6/ul (4.0-5.4); Red Cell Distribution Width 13 % (10.5-15); White Blood Count 6.1 10^3/ul (3.5-10.8)
[2016-07-19] MEDS: Docusate CAP* 100 MG PO SCH ×2 (09:04→20:45)
[2016-07-19] MEDS: Vitamin THERAPEUTIC TAB PO SCH (09:04)
[2016-07-19] MEDS: Metoprolol Succinate XL TAB* 25 MG PO SCH (09:04)
[2016-07-19] MEDS: Tiotropium CAP.INH* CAP.INH/18 MCG (USE ORDER SET !) INH SCH ×2 (09:04→09:47)
[2016-07-19] MEDS: Aspirin Low Dose CHEW TAB* 81 MG PO SCH (09:04)
--- NOTE | 2016-07-19 11:17 | PN ---
Progress Note - Progress Note SOAP: Subjective: Pt admitted to the [facility] as BPs have normalized. Pt states that she is comfortable this morning. She states that she has not seen PT as of yet and is waiting on him to get moving. She states she is very bored here and would like something to do. Objective: General: Pt is alert, awake and oriented. She appears in no acute distress. RLE: dressing cdi, nvid, Able to dorsiflex and planter flex foot. Vital Signs Temp 99.4 F 07/19/16 07:16 Pulse 95 07/19/16 07:16 Resp 18 07/19/16 09:20 BP 121/59 07/19/16 07:16 Pulse Ox 87 07/19/16 07:16 Intake & Output 07/18/16 07/19/16 07/19/16 18:59 06:59 18:59 Intake Total 600 135 150 Output Total 350 2150 Balance 250 -2014 150 Intake: IV Fluids 500 85 LR 500 55 NS 30 IVPB 100 LR 100 Oral 50 Marte Irrigate Amount 150 Output: Marte 350 2150 Laboratory Results - last 24 hr 07/16/16 07/19/16 17:08 07:24 WBC 6.1 RBC 2.53 L Hgb 7.9 L Hct 23 L MCV 91 MCH 31 MCHC 34 RDW 13 Plt Count 102 L MPV 8 Crossmatch See Detail Assessment: POD 2 R hip ORIF IMN Plan: Continue to Follow H/H daily 1 unit of packed RBCs transfused as Hct has been slowly trending downward today. Appears that it may be more due to hemodilution. Hct is below 24 today. Continue Lvx anticoag PT PWB RLE Continue current pain control
--- NOTE | 2016-07-19 11:40 | PN ---
Subjective Date of Service: 07/19/16 Interval History: Pt is feeling ok. She denies any pain at this time. She just worked with PT and feels that she did well. No SOB. Objective Active Medications: Acetaminophen (Tylenol Tab*) 650 mg PO Q4H PRN PRN Reason: FEVER/PAIN Last Admin: 07/18/16 10:38 Dose: 650 mg Albuterol (Ventolin 2.5 Mg/3 Ml Neb.Raine*) 2.5 mg INH Q2H PRN PRN Reason: SOB/WHEEZING Albuterol (Ventolin Hfa Inhaler*) 2 puff INH [id number] AWAKE [facility] Last Admin: 07/19/16 09:11 Dose: 2 puff Aspirin (Aspirin Low Dose Tab*) 162 mg PO DAILY [facility] Last Admin: 07/19/16 09:04 Dose: 162 mg Docusate Sodium (Colace Cap*) 100 mg PO BID [facility] Last Admin: 07/19/16 09:04 Dose: 100 mg Enoxaparin Sodium (Lovenox(*)) 40 mg SUBCUT 0000 [facility] Last Admin: 07/19/16 00:28 Dose: 40 mg Cefazolin Sodium/Dextrose (Kefzol 1 Gm In Dextrose Duplex (*)) 1 gm in 50 mls @ 200 mls/hr IVPB Q6H [facility] Last Admin: 07/19/16 11:01 Dose: 200 mls/hr Magnesium Hydroxide (Milk Of Magnesia Liq*) 30 ml PO Q6H PRN PRN Reason: constipation Last Admin: 07/19/16 09:05 Dose: 30 ml Metoprolol Succinate (Toprol Xl Tab*) 25 mg PO DAILY [facility] Last Admin: 07/19/16 09:04 Dose: 25 mg Morphine Sulfate (Morphine Inj (Syringe)*) 2 mg IV Q2H PRN PRN Reason: PAIN Last Admin: 07/17/16 12:22 Dose: 2 mg Multivitamins (Theragran Tab*) 1 tab PO DAILY [facility] Last Admin: 07/19/16 09:04 Dose: 1 tab Ondansetron HCl (Zofran Inj*) 4 mg IV Q6H PRN PRN Reason: nausea Oxycodone/Acetaminophen (Percocet 5/325 Tab*) 1 tab PO Q4H PRN PRN Reason: PAIN Last Admin: 07/19/16 07:20 Dose: 1 tab Oxycodone/Acetaminophen (Percocet 5/325 Tab*) 2 tab PO Q4H PRN PRN Reason: PAIN - MODERATE Tiotropium [place] (Spiriva Cap.Inh*) 1 cap INH DAILY [facility] Last Admin: 07/19/16 09:47 Dose: 1 cap.inh Vital Signs 07/18/16 07/18/16 07/18/16 12:00 12:04 12:07 Temperature 99.5 F Pulse Rate 84 84 81 Respiratory 18 18 18 Rate Blood Pressure 76/46 78/65 (mmHg) O2 Sat by Pulse 92 94 96 Oximetry 07/18/16 07/18/16 07/18/16 13:00 14:00 14:35 Temperature Pulse Rate 72 80 88 Respiratory 18 26 20 Rate Blood Pressure 94/50 100/63 (mmHg) O2 Sat by Pulse 98 100 97 Oximetry 07/18/16 07/18/16 07/18/16 14:54 15:00 16:00 Temperature Pulse Rate 86 95 Respiratory 22 26 22 Rate Blood Pressure 93/60 (mmHg) O2 Sat by Pulse 97 97 Oximetry 07/18/16 07/18/16 07/18/16 16:38 17:00 18:00 Temperature Pulse Rate 88 88 88 Respiratory 19 20 25 Rate Blood Pressure 110/42 114/52 109/59 (mmHg) O2 Sat by Pulse 95 97 99 Oximetry 07/18/16 07/18/16 07/18/16 19:00 20:00 20:34 Temperature 99.3 F Pulse Rate 88 89 Respiratory 28 19 Rate Blood Pressure 109/61 120/98 (mmHg) O2 Sat by Pulse 97 98 Oximetry 07/18/16 07/18/16 07/18/16 21:00 22:00 22:10 Temperature 98.2 F Pulse Rate 93 94 Respiratory 20 25 22 Rate Blood Pressure 114/59 136/76 120/64 (mmHg) O2 Sat by Pulse 96 93 Oximetry 07/18/16 07/18/16 07/18/16 22:21 22:36 22:40 Temperature 98.2 F Pulse Rate 94 Respiratory 25 22 22 Rate Blood Pressure 120/64 (mmHg) O2 Sat by Pulse 93 Oximetry 07/19/16 07/19/16 07/19/16 02:45 03:22 07:16 Temperature 98.7 F 99.4 F Pulse Rate 107 95 Respiratory 22 22 16 Rate Blood Pressure 132/76 121/59 (mmHg) O2 Sat by Pulse 93 87 Oximetry 07/19/16 07/19/16 07/19/16 07:20 07:31 09:20 Temperature Pulse Rate Respiratory 18 18 18 Rate Blood Pressure (mmHg) O2 Sat by Pulse Oximetry Oxygen Devices in Use Now: Nasal Cannula - 93%-2L Appearance: Elderly female sitting in a chair, NAD Eyes: No Scleral Icterus Ears/Nose/Mouth/Throat: Mucous Membranes Moist Respiratory: Symmetrical Chest Expansion and Respiratory Effort, Clear to Auscultation - slightly decreased breath sounds in all lung reyes Cardiovascular: RRR, No Edema, - - III/ systolic murmur heard best at the RUSB Abdominal: NL Sounds; No Tenderness; No Distention Extremities: No Clubbing, Cyanosis Skin: No Rash or Ulcers, No Nodules or Sclerosis Neurological: - - slightly confused Result Diagrams: 07/19/16 07:24 07/17/16 22:35 Assess/Plan/Problems-Billing Ms. Hairston is an 81 yo female with PMHx significant for COPD, HTN, PFO, diastolic heart failure, S/P AV replacement who presented to the emergency room after a fall with complaints of right hip pain and was found to have a right intertrochanteric hip fx. - Patient Problems (1) Fracture, intertrochanteric, right femur Current Visit: Yes Status: Acute Code(s): S72.141A - DISPLACED INTERTROCHANTERIC FRACTURE OF RIGHT FEMUR, INIT SNOMED Code(s): 466778297 Comment: POD #2 s/p IM nail with Dr. Jon. Management including DVT prophylaxis per orthopedics. PT/OT. She will likely needs STR. (2) Acute blood loss anemia Current Visit: Yes Status: Acute Code(s): D62 - ACUTE POSTHEMORRHAGIC ANEMIA SNOMED Code(s): 993422115 Comment: H/H has trended down further again today. She will receive 1unit PRBC today. Follow up H/H tomorrow AM. (3) HTN (hypertension) Current Visit: Yes Status: Acute Code(s): I10 - ESSENTIAL (PRIMARY) HYPERTENSION SNOMED Code(s): 53448263 Comment: Hypotension has resolved. Continue to monitor pressures. She received her metoprolol this AM. (4) COPD (chronic obstructive pulmonary disease) Current Visit: Yes Status: Acute Code(s): J44.9 - CHRONIC OBSTRUCTIVE PULMONARY DISEASE, UNSPECIFIED SNOMED Code(s): 05920238 Comment: No signs of exacerbation at this time. Continue inhalers and supplemental O2. She does not use O2 at home and her sats are in the low to mid 90's on supplemental O2. Will try to wean off O2 though she may need continuous O2. (5) Diastolic CHF Current Visit: Yes Status: Acute Code(s): I50.30 - UNSPECIFIED DIASTOLIC ( CONGESTIVE) HEART FAILURE SNOMED Code(s): 553154475 Comment: No signs of fluid overload at this time. Monitor as she has received many boluses for hypotension. (6) DVT prophylaxis Current Visit: Yes Status: Acute Onset Date: 09/30/14 Code(s): ZVK1402 - SNOMED Code(s): 552156867 Comment: Lovenox (7) Full code status Current Visit: Yes Status: Acute Onset Date: 09/30/14 Code(s): Z78.9 - OTHER SPECIFIED HEALTH STATUS SNOMED Code(s): 076538092 Status and Disposition: .
[2016-07-20] MEDS: Albuterol HFA INHALER* 8 gm MDI INH SCH ×6 (03:25→23:41)
[2016-07-20] MEDS: ceFAZolin 1 GM in Dextrose (*) 1 GM/50 ML BAG IVPB SCH ×4 (04:42→23:40)
[2016-07-20 06:48] LABS: Hematocrit 25 % (35-47); Hemoglobin 8.4 g/dl (12.0-16.0); Mean Corpuscular HGB Conc 34 g/dl (31-36); Mean Corpuscular Hemoglobin 31 pg (27-31); Mean Corpuscular Volume 92 fL (80-97); Mean Platelet Volume 8 um3 (7.4-10.4); Red Blood Count 2.71 10^6/ul (4.0-5.4); Red Cell Distribution Width 13 % (10.5-15); White Blood Count 6.4 10^3/ul (3.5-10.8)
[2016-07-20] MEDS: Tiotropium CAP.INH* CAP.INH/18 MCG (USE ORDER SET !) INH SCH (07:28)
[2016-07-20] MEDS: Aspirin Low Dose CHEW TAB* 81 MG PO SCH (07:29)
[2016-07-20] MEDS: Vitamin THERAPEUTIC TAB PO SCH (07:30)
[2016-07-20] MEDS: Metoprolol Succinate XL TAB* 25 MG PO SCH (07:30)
[2016-07-20] MEDS: Docusate CAP* 100 MG PO SCH ×2 (07:30→20:49)
--- NOTE | 2016-07-20 10:55 | PN ---
Progress Note - Progress Note SOAP: Subjective: []Patient seen OOB in chair. Talking with Occupational therapist. Confused at times. Wants to get up and get moving and wants to know when she will be discharged. On NC O2. Having some baseline shortness of breath. Denies chest pain, dizziness. Received 1 Unit PRBC yesterday. Objective: [] Vital Signs Temp 97.5 F 07/20/16 07:18 Pulse 85 07/20/16 10:16 Resp 16 07/20/16 10:16 BP 146/79 07/20/16 07:18 Pulse Ox 95 07/20/16 10:16 Intake & Output 07/19/16 07/20/16 07/20/16 18:59 06:59 18:59 Intake Total 625 1012 200 Output Total 900 725 200 Balance -275 287 0 Weight 181 lb 9.6 oz Intake: IV Fluids 35 52 ABX - CEFAZOLIN 15 NS 20 52 IVPB 60 110 ABX - CEFAZOLIN 60 110 Medicated IV 60 cefazolin 60 Oral 320 850 200 Marte Irrigate Amount 150 Output: Urine 900 725 200 Other: Estimated Void Large Estimated Stool Amount Small # Voids 1 Laboratory Results - last 24 hr 07/16/16 07/19/16 07/20/16 17:08 16:10 06:10 WBC 6.4 RBC 2.71 L Hgb 8.4 L Hct 25 L MCV 92 MCH 31 MCHC 34 RDW 13 Plt Count 116 L MPV 8 Blood Type B Positive Antibody Screen Negative Crossmatch See Detail Transfusion React Rpt Donor Unit # [id number] Post-Trans Blood Type B Positive Post-Trans ASHLEY Negative Reaction Interpretation Right lower extremity with mild diffuse edema. +DF/PF neuro intact calf Non tender and soft Tresa's sign negative Old dried bloody drainage on dressing, incision benign Assessment: []S/P ORIF right hip POD #2 Plan: []Continue PT/OT PWB right lower extremity Lovenox FRANCISCO JAVIER bustamante continue current medical management
[2016-07-20] MEDS: oxyCODONE/Acetamin 5/325 MG* TAB PO PRN ×2 (12:27→20:02)
--- NOTE | 2016-07-20 15:31 | PN ---
Subjective Date of Service: 07/20/16 Interval History: Pt is feeling well. She states she had some SOB earlier but now feels better. She denies any pain. She worked with OT and PT today. Objective Active Medications: Acetaminophen (Tylenol Tab*) 650 mg PO Q4H PRN PRN Reason: FEVER/PAIN Last Admin: 07/18/16 10:38 Dose: 650 mg Albuterol (Ventolin 2.5 Mg/3 Ml Neb.Raine*) 2.5 mg INH Q2H PRN PRN Reason: SOB/WHEEZING Albuterol (Ventolin Hfa Inhaler*) 2 puff INH [id number] AWAKE [facility] Last Admin: 07/20/16 11:24 Dose: 2 puff Aspirin (Aspirin Low Dose Tab*) 162 mg PO DAILY [facility] Last Admin: 07/20/16 07:29 Dose: 162 mg Docusate Sodium (Colace Cap*) 100 mg PO BID [facility] Last Admin: 07/20/16 07:30 Dose: 100 mg Enoxaparin Sodium (Lovenox(*)) 40 mg SUBCUT 0000 [facility] Last Admin: 07/19/16 23:46 Dose: 40 mg Cefazolin Sodium/Dextrose (Kefzol 1 Gm In Dextrose Duplex (*)) 1 gm in 50 mls @ 200 mls/hr IVPB Q6H [facility] Last Admin: 07/20/16 11:24 Dose: 200 mls/hr Magnesium Hydroxide (Milk Of Magnesia Liq*) 30 ml PO Q6H PRN PRN Reason: constipation Last Admin: 07/19/16 09:05 Dose: 30 ml Metoprolol Succinate (Toprol Xl Tab*) 25 mg PO DAILY [facility] Last Admin: 07/20/16 07:30 Dose: 25 mg Morphine Sulfate (Morphine Inj (Syringe)*) 2 mg IV Q2H PRN PRN Reason: PAIN Last Admin: 07/17/16 12:22 Dose: 2 mg Multivitamins (Theragran Tab*) 1 tab PO DAILY [facility] Last Admin: 07/20/16 07:30 Dose: 1 tab Ondansetron HCl (Zofran Inj*) 4 mg IV Q6H PRN PRN Reason: nausea Oxycodone/Acetaminophen (Percocet 5/325 Tab*) 1 tab PO Q4H PRN PRN Reason: PAIN Last Admin: 07/20/16 12:27 Dose: 1 tab Oxycodone/Acetaminophen (Percocet 5/325 Tab*) 2 tab PO Q4H PRN PRN Reason: PAIN - MODERATE Tiotropium [place] (Spiriva Cap.Inh*) 1 cap INH DAILY [facility] Last Admin: 07/20/16 07:28 Dose: 1 cap.inh Vital Signs 07/19/16 07/19/16 07/19/16 15:41 17:41 17:42 Temperature Pulse Rate 97 Respiratory 18 18 18 Rate Blood Pressure (mmHg) O2 Sat by Pulse 97 97 Oximetry 07/19/16 07/19/16 07/19/16 19:26 19:59 20:00 Temperature 98.0 F Pulse Rate 80 56 Respiratory 18 18 18 Rate Blood Pressure 105/70 (mmHg) O2 Sat by Pulse 98 95 Oximetry 07/19/16 07/20/16 07/20/16 23:43 00:00 02:31 Temperature 99.3 F 98.5 F Pulse Rate 90 100 Respiratory 18 20 Rate Blood Pressure 124/62 130/74 (mmHg) O2 Sat by Pulse 99 95 95 Oximetry 07/20/16 07/20/16 07/20/16 07:18 08:00 10:16 Temperature 97.5 F Pulse Rate 95 85 Respiratory 22 16 16 Rate Blood Pressure 146/79 (mmHg) O2 Sat by Pulse 93 95 Oximetry 07/20/16 07/20/16 11:13 12:27 Temperature 97.4 F Pulse Rate 83 Respiratory 18 16 Rate Blood Pressure 112/59 (mmHg) O2 Sat by Pulse 92 Oximetry Oxygen Devices in Use Now: Nasal Cannula - 95%-2L Appearance: Elderly female sitting in a chair, NAD Eyes: No Scleral Icterus Ears/Nose/Mouth/Throat: Mucous Membranes Moist Respiratory: Symmetrical Chest Expansion and Respiratory Effort, Clear to Auscultation Cardiovascular: NL Sounds; No Murmurs; No JVD, RRR, No Edema Abdominal: NL Sounds; No Tenderness; No Distention Extremities: No Clubbing, Cyanosis Skin: No Rash or Ulcers, No Nodules or Sclerosis Neurological: - - pleasantly confused today Result Diagrams: 07/20/16 06:10 07/17/16 22:35 Microbiology and Other Data: Microbiology 07/19/16 16:03 Transfusion Reaction Culture - Preliminary Blood Bag Culture Under Incubation Transfusion Reaction Gram Stain - Final Assess/Plan/Problems-Billing Ms. Yovanny is an 81 yo female with PMHx significant for COPD, HTN, PFO, diastolic heart failure, S/P AV replacement who presented to the emergency room after a fall with complaints of right hip pain and was found to have a right intertrochanteric hip fx. - Patient Problems (1) Fracture, intertrochanteric, right femur Current Visit: Yes Status: Acute Code(s): S72.141A - DISPLACED INTERTROCHANTERIC FRACTURE OF RIGHT FEMUR, INIT SNOMED Code(s): 283157402 Comment: POD #3 s/p IM nail with Dr. Jon. Management including DVT prophylaxis per orthopedics. PT/OT. She will likely needs STR-awaiting PMRU answer then likely application will go out to the [facility]. (2) Acute blood loss anemia Current Visit: Yes Status: Acute Code(s): D62 - ACUTE POSTHEMORRHAGIC ANEMIA SNOMED Code(s): 130787554 Comment: H/H better after 1 unit PRBC yesterday. Follow up H/H tomorrow AM. (3) HTN (hypertension) Current Visit: Yes Status: Acute Code(s): I10 - ESSENTIAL (PRIMARY) HYPERTENSION SNOMED Code(s): 37981376 Comment: BP is under good control. Continue to monitor. (4) COPD (chronic obstructive pulmonary disease) Current Visit: Yes Status: Acute Code(s): J44.9 - CHRONIC OBSTRUCTIVE PULMONARY DISEASE, UNSPECIFIED SNOMED Code(s): 74158245 Comment: No signs of exacerbation at this time. Continue inhalers and supplemental O2. Try to wean off O2 but she may need it continuously. (5) Diastolic CHF Current Visit: Yes Status: Acute Code(s): I50.30 - UNSPECIFIED DIASTOLIC ( CONGESTIVE) HEART FAILURE SNOMED Code(s): 355352989 Comment: No signs of fluid overload at this time. (6) DVT prophylaxis Current Visit: Yes Status: Acute Onset Date: 09/30/14 Code(s): RWP5836 - SNOMED Code(s): 852989691 Comment: Lovenox (7) Full code status Current Visit: Yes Status: Acute Onset Date: 09/30/14 Code(s): Z78.9 - OTHER SPECIFIED HEALTH STATUS SNOMED Code(s): 601604891 Status and Disposition: .
[2016-07-20] MEDS: Enoxaparin(*) 40 MG/0.4 ML SYR SUBCUT SCH (23:41)
[2016-07-21] MEDS: oxyCODONE/Acetamin 5/325 MG* TAB PO PRN ×3 (03:07→19:59)
[2016-07-21] MEDS: Albuterol HFA INHALER* 8 gm MDI INH SCH ×6 (03:10→23:31)
[2016-07-21] MEDS: ceFAZolin 1 GM in Dextrose (*) 1 GM/50 ML BAG IVPB SCH (05:17)
[2016-07-21 06:56] LABS: Hematocrit 24 % (35-47); Hemoglobin 8.1 g/dl (12.0-16.0); Mean Corpuscular HGB Conc 34 g/dl (31-36); Mean Corpuscular Hemoglobin 31 pg (27-31); Mean Corpuscular Volume 91 fL (80-97); Mean Platelet Volume 8 um3 (7.4-10.4); Red Blood Count 2.64 10^6/ul (4.0-5.4); Red Cell Distribution Width 13 % (10.5-15); White Blood Count 4.9 10^3/ul (3.5-10.8)
[2016-07-21 07:10] LABS: EGFR African American 130.3 (>60); EGFR Non-African American 101.3 (>60); Potassium 3.8 mmol/L (3.5-5.0)
[2016-07-21] MEDS: Tiotropium CAP.INH* CAP.INH/18 MCG (USE ORDER SET !) INH SCH (08:33)
[2016-07-21] MEDS: Docusate CAP* 100 MG PO SCH ×2 (08:33→19:59)
[2016-07-21] MEDS: Metoprolol Succinate XL TAB* 25 MG PO SCH (08:33)
[2016-07-21] MEDS: Vitamin THERAPEUTIC TAB PO SCH (08:33)
[2016-07-21] MEDS: Aspirin Low Dose CHEW TAB* 81 MG PO SCH (08:33)
--- NOTE | 2016-07-21 08:50 | PN ---
Progress Note - Progress Note SOAP: Subjective: []Patient seen sitting OOB in chair. Working with LUCERO Wilde on exercises. She states she was up and standing yesterday. Patient is confused at times. States she wants to leave hospital. Denies significant right hip pain. Objective: [] Vital Signs Temp 98.1 F 07/21/16 07:42 Pulse 79 07/21/16 07:42 Resp 18 07/21/16 07:42 BP 127/65 07/21/16 07:42 Pulse Ox 96 07/21/16 07:42 Intake & Output 07/20/16 07/21/16 07/21/16 18:59 06:59 18:59 Intake Total 440 1310 Output Total 500 1550 100 Balance -60 -240 -100 Intake: IV Fluids 100 ABX - CEFAZOLIN 100 Oral 440 1210 Output: Urine 500 1550 100 Other: # Bowel Movements 0 Laboratory Results - last 24 hr 07/19/16 07/21/16 07/21/16 16:10 06:34 06:34 WBC 4.9 RBC 2.64 L Hgb 8.1 L Hct 24 L MCV 91 MCH 31 MCHC 34 RDW 13 Plt Count 137 L MPV 8 Sodium 136 Potassium 3.8 Chloride 102 Carbon Dioxide 32 Anion Gap 2 BUN 8 Creatinine 0.57 Est GFR ( Amer) 130.3 Est GFR (Non-Af Amer) 101.3 BUN/Creatinine Ratio 14.0 Glucose 100 Calcium 8.0 L Transfusion React Rpt Reaction Interpretation right hip incisions are benign old bloody drainage on dressings calf is non tender and soft Tresa's sign negative +DF/PF right ankle Assessment: []s/p ORIF right hip with Gamma nail POD #4 Plan: []Continue PT OT as tolerated PWB right LE Lovenox Change dressing right hip today SNF rehab follow up 10-[address] Jon once discharged.
--- NOTE | 2016-07-21 13:03 | PN ---
Subjective Date of Service: 07/21/16 Interval History: Pt is feeling well. She describes some pain in her distal R thigh after doing a third rep of exercises from the physical therapist. No SOB. No other complaints. Objective Active Medications: Acetaminophen (Tylenol Tab*) 650 mg PO Q4H PRN PRN Reason: FEVER/PAIN Last Admin: 07/18/16 10:38 Dose: 650 mg Albuterol (Ventolin 2.5 Mg/3 Ml Neb.Raine*) 2.5 mg INH Q2H PRN PRN Reason: SOB/WHEEZING Albuterol (Ventolin Hfa Inhaler*) 2 puff INH [id number] AWAKE [facility] Last Admin: 07/21/16 12:08 Dose: 2 puff Aspirin (Aspirin Low Dose Tab*) 162 mg PO DAILY [facility] Last Admin: 07/21/16 08:33 Dose: 162 mg Docusate Sodium (Colace Cap*) 100 mg PO BID [facility] Last Admin: 07/21/16 08:33 Dose: 100 mg Enoxaparin Sodium (Lovenox(*)) 40 mg SUBCUT 0000 [facility] Last Admin: 07/20/16 23:41 Dose: 40 mg Magnesium Hydroxide (Milk Of Magnesia Liq*) 30 ml PO Q6H PRN PRN Reason: constipation Last Admin: 07/19/16 09:05 Dose: 30 ml Metoprolol Succinate (Toprol Xl Tab*) 25 mg PO DAILY [facility] Last Admin: 07/21/16 08:33 Dose: 25 mg Morphine Sulfate (Morphine Inj (Syringe)*) 2 mg IV Q2H PRN PRN Reason: PAIN Last Admin: 07/17/16 12:22 Dose: 2 mg Multivitamins (Theragran Tab*) 1 tab PO DAILY [facility] Last Admin: 07/21/16 08:33 Dose: 1 tab Ondansetron HCl (Zofran Inj*) 4 mg IV Q6H PRN PRN Reason: nausea Oxycodone/Acetaminophen (Percocet 5/325 Tab*) 1 tab PO Q4H PRN PRN Reason: PAIN Last Admin: 07/21/16 07:09 Dose: 1 tab Oxycodone/Acetaminophen (Percocet 5/325 Tab*) 2 tab PO Q4H PRN PRN Reason: PAIN - MODERATE Tiotropium [place] (Spiriva Cap.Inh*) 1 cap INH DAILY [facility] Last Admin: 07/21/16 08:33 Dose: 1 cap.inh Vital Signs 07/20/16 07/20/16 07/20/16 15:49 19:00 19:53 Temperature 97.5 F 100.1 F Pulse Rate 90 92 Respiratory 20 16 16 Rate Blood Pressure 109/53 114/65 (mmHg) O2 Sat by Pulse 96 97 Oximetry 07/20/16 07/20/16 07/20/16 20:00 20:02 22:02 Temperature Pulse Rate 80 Respiratory 20 20 18 Rate Blood Pressure (mmHg) O2 Sat by Pulse 98 Oximetry 07/20/16 07/21/16 07/21/16 23:44 03:03 03:07 Temperature 98.1 F 98.3 F Pulse Rate 87 94 Respiratory 20 20 18 Rate Blood Pressure 144/66 137/72 (mmHg) O2 Sat by Pulse 95 94 Oximetry 07/21/16 07/21/16 07/21/16 05:07 07:09 07:17 Temperature Pulse Rate Respiratory 16 18 18 Rate Blood Pressure (mmHg) O2 Sat by Pulse Oximetry 07/21/16 07/21/16 07/21/16 07:42 09:09 12:07 Temperature 98.1 F 97.5 F Pulse Rate 79 75 Respiratory 18 18 18 Rate Blood Pressure 127/65 123/60 (mmHg) O2 Sat by Pulse 96 95 Oximetry Oxygen Devices in Use Now: Nasal Cannula - 95%-1L Appearance: Elderly female sitting up in a chair, NAD Eyes: No Scleral Icterus Ears/Nose/Mouth/Throat: Mucous Membranes Moist Respiratory: Symmetrical Chest Expansion and Respiratory Effort, Clear to Auscultation Cardiovascular: NL Sounds; No Murmurs; No JVD, RRR, - - mild-moderate edema of the distal posterior thigh and calf Abdominal: NL Sounds; No Tenderness; No Distention Extremities: No Clubbing, Cyanosis Skin: No Rash or Ulcers, No Nodules or Sclerosis Neurological: - - oriented to place and situation Result Diagrams: 07/21/16 06:34 07/21/16 06:34 Microbiology and Other Data: Microbiology 07/19/16 16:03 Transfusion Reaction Culture - Preliminary Blood Bag Culture Under Incubation Transfusion Reaction Gram Stain - Final Assess/Plan/Problems-Billing Ms. Hairston is an 81 yo female with PMHx significant for COPD, HTN, PFO, diastolic heart failure, S/P AV replacement who presented to the emergency room after a fall with complaints of right hip pain and was found to have a right intertrochanteric hip fx. - Patient Problems (1) Fracture, intertrochanteric, right femur Current Visit: Yes Status: Acute Code(s): S72.141A - DISPLACED INTERTROCHANTERIC FRACTURE OF RIGHT FEMUR, INIT SNOMED Code(s): 640509997 Comment: POD #4 s/p IM nail with Dr. Jon. Management including DVT prophylaxis per orthopedics. PT/OT. She will likely needs STR-awaiting PMRU answer then likely application will go out to the [facility]. (2) Acute blood loss anemia Current Visit: Yes Status: Acute Code(s): D62 - ACUTE POSTHEMORRHAGIC ANEMIA SNOMED Code(s): 766062447 Comment: H/H stable today. Continue to monitor. (3) HTN (hypertension) Current Visit: Yes Status: Acute Code(s): I10 - ESSENTIAL (PRIMARY) HYPERTENSION SNOMED Code(s): 86201458 Comment: BP is under good control. Continue to monitor. (4) COPD (chronic obstructive pulmonary disease) Current Visit: Yes Status: Acute Code(s): J44.9 - CHRONIC OBSTRUCTIVE PULMONARY DISEASE, UNSPECIFIED SNOMED Code(s): 08292223 Comment: No signs of exacerbation at this time. Continue inhalers and supplemental O2. She has been weaned down to 1L. Try to wean off completely. (5) Diastolic CHF Current Visit: Yes Status: Acute Code(s): I50.30 - UNSPECIFIED DIASTOLIC ( CONGESTIVE) HEART FAILURE SNOMED Code(s): 570565788 Comment: No signs of fluid overload at this time. (6) DVT prophylaxis Current Visit: Yes Status: Acute Onset Date: 09/30/14 Code(s): YJB3584 - SNOMED Code(s): 409504274 Comment: Lovenox (7) Full code status Current Visit: Yes Status: Acute Onset Date: 09/30/14 Code(s): Z78.9 - OTHER SPECIFIED HEALTH STATUS SNOMED Code(s): 412227711 Status and Disposition: .
[2016-07-21] MEDS: Enoxaparin(*) 40 MG/0.4 ML SYR SUBCUT SCH (23:31)
[2016-07-22] MEDS: oxyCODONE/Acetamin 5/325 MG* TAB PO PRN ×3 (03:19→13:37)
[2016-07-22] MEDS: Albuterol HFA INHALER* 8 gm MDI INH SCH ×4 (03:21→14:57)
[2016-07-22] MEDS: Vitamin THERAPEUTIC TAB PO SCH (08:18)
[2016-07-22] MEDS: Docusate CAP* 100 MG PO SCH (08:18)
[2016-07-22] MEDS: Metoprolol Succinate XL TAB* 25 MG PO SCH (08:18)
[2016-07-22] MEDS: Aspirin Low Dose CHEW TAB* 81 MG PO SCH (08:19)
[2016-07-22] MEDS: Tiotropium CAP.INH* CAP.INH/18 MCG (USE ORDER SET !) INH SCH (08:19)
[2016-07-22 11:50] VITALS: BP 116/63
--- NOTE | 2016-07-22 13:29 | PN ---
Subjective Date of Service: 07/22/16 Interval History: Ms. Hairston states that she is feeling as well as can be expected. She denies complaint of chest pain, SOB, nausea, or abdominal pain. Family History: Unchanged from Admission Social History: Unchanged from Admission Past Medical History: Unchanged from Admission Objective Active Medications: Acetaminophen (Tylenol Tab*) 650 mg PO Q4H PRN Albuterol (Ventolin 2.5 Mg/3 Ml Neb.Raine*) 2.5 mg INH Q2H PRN Albuterol (Ventolin Hfa Inhaler*) 2 puff INH [id number] AWAKE [facility] Aspirin (Aspirin Low Dose Tab*) 162 mg PO DAILY [facility] Docusate Sodium (Colace Cap*) 100 mg PO BID [facility] Enoxaparin Sodium (Lovenox(*)) 40 mg SUBCUT 0000 [facility] Magnesium Hydroxide (Milk Of Magnesia Liq*) 30 ml PO Q6H PRN Metoprolol Succinate (Toprol Xl Tab*) 25 mg PO DAILY [facility] Morphine Sulfate (Morphine Inj (Syringe)*) 2 mg IV Q2H PRN Multivitamins (Theragran Tab*) 1 tab PO DAILY [facility] Ondansetron HCl (Zofran Inj*) 4 mg IV Q6H PRN Oxycodone/Acetaminophen (Percocet 5/325 Tab*) 1 tab PO Q4H PRN Oxycodone/Acetaminophen (Percocet 5/325 Tab*) 2 tab PO Q4H PRN Tiotropium [place] (Spiriva Cap.Inh*) 1 cap INH DAILY [facility] Vital Signs 07/21/16 07/21/16 07/21/16 15:00 15:22 19:33 Temperature 98.0 F 98.3 F Pulse Rate 80 86 84 Respiratory 22 28 24 Rate Blood Pressure 116/61 106/57 (mmHg) O2 Sat by Pulse 94 93 95 Oximetry 07/21/16 07/21/16 07/21/16 19:59 20:00 21:59 Temperature Pulse Rate 90 Respiratory 20 20 18 Rate Blood Pressure (mmHg) O2 Sat by Pulse 88 Oximetry 07/21/16 07/22/16 07/22/16 23:29 00:00 03:19 Temperature 98.7 F Pulse Rate 95 Respiratory 18 20 Rate Blood Pressure 145/76 (mmHg) O2 Sat by Pulse 97 96 Oximetry 07/22/16 07/22/1617 04:27 05:19 07:37 Temperature 98.4 F 97.9 F Pulse Rate 95 81 Respiratory 16 20 16 Rate Blood Pressure 128/59 139/64 (mmHg) O2 Sat by Pulse 96 98 Oximetry 07/22/16 07/22/16 07/22/16 07:56 08:18 09:56 Temperature Pulse Rate Respiratory 20 18 18 Rate Blood Pressure (mmHg) O2 Sat by Pulse Oximetry 07/22/16 11:45 Temperature 97.8 F Pulse Rate 75 Respiratory 16 Rate Blood Pressure 116/63 (mmHg) O2 Sat by Pulse 98 Oximetry Oxygen Devices in Use Now: Nasal Cannula - 95%-1L Appearance: Obese elderly female sitting up in chair in NAD Respiratory: Symmetrical Chest Expansion and Respiratory Effort, Clear to Auscultation Cardiovascular: NL Sounds; No Murmurs; No JVD, No Edema Abdominal: NL Sounds; No Tenderness; No Distention Extremities: No Edema Skin: No Rash or Ulcers Neurological: Alert and Oriented x 3, NL Muscle Strength and Tone Nutrition: Taking PO's Result Diagrams: 07/21/16 06:34 07/21/16 06:34 Microbiology and Other Data: Microbiology 07/19/16 16:03 Transfusion Reaction Culture - Preliminary Blood Bag Culture Under Incubation Transfusion Reaction Gram Stain - Final Assess/Plan/Problems-Billing Ms. Hairston is an 81 yo female with PMHx significant for COPD, HTN, PFO, diastolic heart failure, S/P AV replacement who presented to the emergency room after a fall with complaints of right hip pain and was found to have a right intertrochanteric hip fx. - Patient Problems (1) Fracture, intertrochanteric, right femur Comment: POD #5 s/p IM nail with Dr. Jno. Management including DVT prophylaxis per orthopedics. PT/OT. (2) Acute blood loss anemia Comment: H/H stable. (3) COPD (chronic obstructive pulmonary disease) Comment: No signs of exacerbation at this time. Continue inhalers and supplemental O2 with mobility. SpO2 noted to fall with ambulation per PT (85%) . (4) Diastolic CHF Comment: No signs of fluid overload at this time. (5) HTN (hypertension) Comment: BP is under good control. (6) DVT prophylaxis Comment: Lovenox (7) Full code status Status and Disposition: Discharge to [facility] [place].
--- NOTE | 2016-07-22 14:34 | DS ---
DATE OF ADMISSION: 07/16/2016. DATE OF DISCHARGE: 07/22/2016. ATTENDING PHYSICIAN: Dr. David Albright *(dictation provided by Terese Murphy NP) . PRIMARY DIAGNOSIS: Right hip fracture, status post ORIF. SECONDARY DIAGNOSES: 1. Hypertension. 2. History of patent foramen ovale. 3. History of congestive heart failure. 4. History of COPD. 5. History of tremors. 6. 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 7. History of diastolic congestive heart failure. 8. History of aortic valve replacement, porcine. MEDICATIONS - OUTPATIENT: 1. Avapro 150 mg p.o. daily. 2. Aspirin 162 mg p.o. daily. 3. Metoprolol 25 mg p.o. daily. 4. Spiriva one cap inhaled daily. 5. Ventolin 2.5 mg inhaled q.4 hours. 6. Lovenox 40 mg subcutaneously daily. 7. Oxycodone/acetaminophen 5/325 one tab p.o. q.4 hours prn pain. 8. Tylenol prn pain. HOSPITAL COURSE: Ms. Hairston is an 81-year-old female with a past medical history as outlined above who presented to the emergency room on 07/16/2016 with concern for right hip pain after a fall. Please see the dictated history and physical from García Blackman NP for complete details. In brief, the patient had had a mechanical fall and was found to have a displaced angulated intertrochanteric fracture of the right femur. Ms. Hairston was admitted to the hospital. She did have a transthoracic echocardiogram preoperatively which was read as follows: "Left ventricular chamber size is normal; moderate concentric left ventricular hypertrophy is observed; there is normal left ventricular systolic function; the left atrium is moderate to severely dilated; a porcine bioprosthetic aortic valve is present ; there is stable paravalvular regurgitation and elevated but stable mean peak gradients; compared to prior study from September 2014, no significant change is noted." The patient also had a chest x-ray preoperatively that was read as follows: "Post surgical changes; cardiomegaly; no evidence of acute finding." The patient was taken to the OR the following day, 07/17/2016, with Dr. Aldo Jon for ORIF of the right hip fracture with intramedullary nail. I refer you to his operative note for complete details. In immediate postoperative period, the patient's hemoglobin trended down to 7.9/23. At that time, she was transfused one unit of packed red blood cells. Her hemoglobin has remained stable since then and it is currently 8.1/24 on the day prior to discharge. Ms. Hairston has been participating with physical therapy and has been making slow progress. She has significant anxiety which contributes to her fear with mobility. The patient has been offered and has accepted a bed for subacute rehab at [facility] and will be going there today. Ms. Hairston is doing well and is medically stable for discharge to [facility] to continue rehab in preparation hopefully for return to independent living. DISPOSITION: To [facility]. DIET: Low salt. ACTIVITY: Partial weight bear on the right. FOLLOW-UP: 1. Please follow-up with care providers at [facility] per routine. 2. Please follow-up with Orthopedics in 10 to 14 days from today. 3. Please follow-up with Dr. Blunt per routine after discharge from the [facility]. Approximately 60 minutes were spent in the discharge of this patient, more than half that time was spent with her at the bedside reviewing the events leading up to and during this hospitalization, performing the physical examination and reviewing the plan of care. TERESE MURPHY NP CC: Dr. Blunt * [id number]/[facility] #: [id number] MTDD
== END 2016-07-22 13:40 | DRG 481 ==
LOC: ED 16:20 → OBSVTOIN 16:52 → SSU 16:52 → ICU 07-17 22:35 → UNDODISIN 07-17 22:37 → SSU 07-18 22:36
PROVIDERS: ADMIT Internal Medicine; ATTEND Internal Medicine
PROC: 30233N1 Transfusion of Nonautologous Red Blood Cells into Peripheral Vein, Percutaneous Approach (ICD-10-PCS; principal; 2016-07-16)
PROC: 0QS606Z Reposition Right Upper Femur with Intramedullary Internal Fixation Device, Open Approach (ICD-10-PCS; 2016-07-16)
DX: S72.141A Displaced intertrochanteric fracture of right femur, initial encounter for closed fracture (principal); I50.32 Chronic diastolic (congestive) heart failure; I11.0 Hypertensive heart disease with heart failure; I95.9 Hypotension, unspecified; J44.9 Chronic obstructive pulmonary disease, unspecified; D62 Acute posthemorrhagic anemia; Z95.3 Presence of xenogenic heart valve; Z87.891 Personal history of nicotine dependence; J45.909 Unspecified asthma, uncomplicated; Z83.6 Family history of other diseases of the respiratory system; R05 Cough; Z87.01 Personal history of pneumonia (recurrent); W18.30XA Fall on same level, unspecified, initial encounter; Y93.01 Activity, walking, marching and hiking; Y92.9 Unspecified place or not applicable; H91.90 Unspecified hearing loss, unspecified ear; Z98.49 Cataract extraction status, unspecified eye; I73.9 Peripheral vascular disease, unspecified
CPT/HCPCS: 36415; 71010; 80048; 80053; 85014; 85018; 85025; 85027; 85610; 85730; 86078; 86850; 86900; 86901; 86922; 93005; 93306; 94640; 94664; 94760; A9270-GY; C1713; C1776; J0690; J1170; J1644; J1650; J2250; J2270; J2405; J3010; P9016

== ENCOUNTER 2016-08-24 15:06 | Emergency (ER) | payer MEDICARE ==
--- NOTE | 2016-08-24 16:02 | ED ---
Lower Extremity - HPI Summary HPI Summary: 81 female presents accompanied by son from her follow up appointment at primary care provider office and after having a positive U/S showing a DVT. Patient had hip surgery approximately 1 month ago and just finished rehab 2 weeks ago. Patient since has lived at home on her own still been experiencing pain and says she has been sleeping often and non-ambulatory. Complains of pain that she has had since the hip surgery. She is very hard of hearing. She is always short of breath due to her chronic COPD both her and her son state this is her normal state and is not any different. Denies being more short of breath, chest pain, difficulty breathing and abdominal pain. Admits to swelling and redness of the lower extremities for the past couple of week with the right one being swelling more than the left. - History of Current Complaint Chief Complaint: EDExtremityLower Stated Complaint: SWELLING OF BOTH LEGS Hx Obtained From: Patient, Family/Art Dealer - son Onset/Duration: Still Present Severity Initially: Mild Severity Currently: None Pain Intensity: 0 Pain Scale Used: 0-10 Numeric Timing: Constant Character Of Pain: Unable To Describe Associated Signs And Symptoms: Positive: Swelling, Redness, Other - calf pain Able to Bear Weight: Yes - Risk Factors DVT Risk Factors: Recent Period Of Bedrest, Recent Surgery - Allergies/Home Medications Allergies/Adverse Reactions: Allergies Allergy/AdvReac Type Severity Reaction Status Date / Time No Known Allergies Allergy Verified 09/30/14 18:40 Home Medications: Home Medications Docusate CAP* [Colace Cap*] 100 mg PO BID PRN 08/24/16 [History Confirmed ] oxyCODONE/Acetamin 5/325 MG* [Percocet 5/325 TAB*] 1 tab PO Q6HR PRN MDD 4 tabs 08/24/16 [History Confirmed 08/24/16] PMH/Surg Hx/FS Hx/Imm Hx Endocrine/Hematology History: Reports: Hx Anticoagulant Therapy Cardiovascular History: Reports: Hx Hypertension, Other Cardiovascular Problems/ Disorders - Open heart surgery Respiratory History: Reports: Hx Asthma, Hx Chronic Obstructive Pulmonary Disease (COPD) Sensory History: Reports: Hx Contacts or Glasses - reading glasses, Hx Hearing Aid, Hx Hearing Problem Opthamlomology History: Reports: Hx Contacts or Glasses - reading glasses - Surgical History Surgery Procedure, Year, and Place: Open heart surgery 04/2010. aortic valve replacement. repair right femur fracture 06/2016 Infectious Disease History: Reports: Hx Tuberculosis Denies: Traveled Outside the [place] in Last 30 Days - Family History Known Family History: Positive: Respiratory Disease - Social History Alcohol Use: None Substance Use Type: Reports: None Smoking Status (MU): Former Smoker Review of Systems Constitutional: Negative Eyes: Negative ENT: Negative Cardiovascular: Negative Respiratory: Negative - normally experiences some SOB due to COPD Gastrointestinal: Negative Genitourinary: Negative Positive: Arthralgia - right hip/LE, Myalgia - right calf, Edema - b/l, worse on right Positive: Other - redness right calf Neurological: Negative Psychological: Normal Positive: Anxious - patient does not like being in hospitals All Other Systems Reviewed And Are Negative: Yes Physical Exam Triage Information Reviewed: Yes Vital Signs On Initial Exam: Initial Vitals Temp Pulse Resp BP Pulse Ox 98.1 F 59 24 141/65 94 08/24/16 15:09 08/24/16 15:09 08/24/16 15:09 08/24/16 15:08/24/16 15:09 BP and Respirations re-taken and in normal ranges. no tachycardia. normal O2 sat for her condition Vital Signs Reviewed: Yes Appearance: Positive: Well-Appearing - A&Ox3, anxious to get out of the hospital , laying in hospital bed, No Pain Distress, Well-Nourished Skin: Positive: Warm - hot to touch right LE, Skin Color Reflects Adequate Perfusion, Dry, Erythema @ Head/Face: Positive: Normal Head/Face Inspection Eyes: Positive: Normal, Conjunctiva Clear ENT: Positive: Normal ENT inspection, Hearing grossly normal Neck: Positive: Supple, Nontender, No Lymphadenopathy Respiratory/Lung Sounds: Positive: Clear to Auscultation, Breath Sounds Present. Negative: Rales, Rhonchi, Unable to speak in full sentences Cardiovascular: Positive: Normal, RRR, Murmur - systolic, valve replacement, Leg Edema Left, Leg Edema Right - more significant than the left, Other - pedal pulse diminished on right lower extremity 1+, upper exremity radial pulse normal b/l 2+ Abdomen Description: Positive: Nontender, No Organomegaly, Soft. Negative: Bruit Bowel Sounds: Positive: Present Musculoskeletal: Positive: Strength/ROM Intact, Pain @ - right LE, Tresa Sign Right, Edema Left, Edema Right, Other - WELLS Score: 4 high risk Neurological: Positive: Normal, Sensory/Motor Intact, Alert, Oriented to Person Place, Time, CN Intact II-III, Speech Normal Psychiatric: Positive: Normal, Affect/Mood Appropriate AVPU Assessment: Alert Diagnostics - Vital Signs Vital Signs Temp Pulse Resp BP Pulse Ox 08/24/16 15:09 98.1 F 59 24 141/65 94 - Laboratory Result Diagrams: 08/24/16 17:04 08/24/16 17:04 Lab Statement: Any lab studies that have been ordered have been reviewed, and results considered in the medical decision making process. - Ultrasound No standard instances Ultrasound Interpretation: Positive (See Comments) - probable DVT in right peroneal veins of right calf Ultrasound Interpretation Completed By: Radiologist Re-Evaluation - Re-Evaluation First Eval Re-Evaluation Time: 18:30 Change: Unchanged - patient is still comfortable, asking when she can leave, understands current plan and agrees Lower Extremity Course/Dx - Course Course Of Treatment: U/S taken before arrival to ED and showed positive DVT of right peroneal vein. Mariah Fletcher NP and Dr Mera hospitalist consult patient. CTA deemed not necessary at this time due to her normal PE and vital signs. Labs obtained, kidney function normal. After speaking with both me and hospitalist, patient and son would really like to go home. Were offered admission to be observed and recieve anticoagulant. Patient and patient's son wanted to be discharged and take a newer anticoagulant at home. Patient was informed of possible risks. Both son and patient aware of worsening signs and symptoms. Spent a lot of time explaining the course of treatment and plan. Given first dose of Xarelto, risk explained throughouly. First 21 days of Xarelto prescribed. Follow up with PCP. Elevate and ambulate/move lower extremities. - Diagnoses Differential Diagnosis/HQI/PQRI: Positive: DVT Provider Diagnoses: DVT of lower extremity (deep venous thrombosis) - Physician Notifications Discussed Care of Patient With: Dr Mera and Chance MARK Time Discussed With Above Provider: 18:15 - and 19:00 Instructed by Provider To: Other - discharge home with anticoagulant therapy due to patient prefernece Discharge - Discharge Plan Condition: Stable Disposition: HOME Prescriptions: Rivaroxaban [Xarelto Starter Pack 15 & 20 mg] 1 tab PO SEE INSTRUCTIONS #42 tab Patient Education Materials: Blood Thinners (ED) Referrals: Tavo Blunt MD [Primary Care Provider] - Additional Instructions: Take prescribed medication as directed for the next couple of week and follow up with your primary care doctor to continue medication. Blood thinners can increase your risk of bleeding, be sure to avoid falling and watch for signs of bleeding. If these occur please seek medical attention immediately. Try to ambulate and move your lower extremities to prevent future blood clots. If you develop worsening symptoms or signs such as increasing shortness of breath, difficulty breathing, chest pain, increased swelling, redness or pain in lower extremities please return to ED promptly. Follow up with primary care provider, Dr Blunt.
[2016-08-24 17:12] LABS: Hematocrit 34 % (35-47); Hemoglobin 11.2 g/dl (12.0-16.0); Mean Corpuscular HGB Conc 33 g/dl (31-36); Mean Corpuscular Hemoglobin 30 pg (27-31); Mean Corpuscular Volume 91 fL (80-97); Mean Platelet Volume 7 um3 (7.4-10.4); Red Blood Count 3.76 10^6/ul (4.0-5.4); Red Cell Distribution Width 14 % (10.5-15); White Blood Count 6.2 10^3/ul (3.5-10.8)
[2016-08-24 17:42] LABS: Albumin 3.8 g/dL (3.2-5.2); BUN/Creatinine Ratio 8.8 (8-20); Calcium 9.4 mg/dL (8.6-10.3); EGFR African American 106.3 (>60); EGFR Non-African American 82.6 (>60); Potassium 3.9 mmol/L (3.5-5.0); Total Bilirubin 0.7 mg/dL (0.2-1.0); Total Protein 6.8 g/dL (6.4-8.9)
[2016-08-24] MEDS ORDERED: Rivaroxaban TAB(*) 15 MG PO ONE (18:10)
[2016-08-24 19:25] VITALS: BP 141/76
--- NOTE | 2016-08-25 | CONS ---
CONSULTATION REPORT: DATE OF CONSULT: 08/24/16 - EMERGENCY DEPT REQUESTING PHYSICIAN FOR CONSULTATION: TARI Sheriff REASON FOR MEDICAL EVALUATION: Evaluation for admission. CHIEF COMPLAINT: Abnormal ultrasound. HISTORY OF PRESENT ILLNESS: Ms. Hairston is an 81-year-old female patient who was just here about a month ago who sustained a hip fracture and she is status post ORIF of that hip. She underwent an ORIF of the hip and initially doing well. She went back to [facility]. Son said that she gets up daily, is able to ambulate around [facility] and go down and get coffee and she typically does better at home than she does in the hospitalization setting and says that she has been doing at her baseline. They noticed that she had been having some redness and swelling of that leg. They actually went to see Dr. Blunt for a routine followup and Dr. Blunt according to the family, this was noted. He ordered an ultrasound and the patient was instructed to come to the hospital because of the new found DVT. The patient says that she is not feeling any shortness of breath. She says she does not have any chest pain. She says that she did note that the leg was getting more swollen, more red, and painful particularly along her calf. She denied having any abdominal discomfort. Denied having any focal weaknesses. The patient denies having any nausea or vomiting. No fevers, no diarrhea and again, most probably no chest pain or shortness of breath and says that she has been still ambulating at her baseline since her surgery and the son attest to this as well. We were asked to evaluate in consult for possible admission due to the DVT. PAST MEDICAL HISTORY: Significant for: 1. COPD. 2. Hypertension. 3. Tremor. 4. History of a PFO. 5. History of tuberculosis. 6. Pneumonia. 7. Diastolic CHF, last known ejection fraction of 60% to 65%. SURGICAL HISTORY: 1. She has had an ORIF of the right hip. 2. Aortic valve replacement. 3. . HOME MEDICATIONS: Include: 1. Colace 100 mg p.o. b.i.d. 2. Tylenol 650 p.o. every 4 hours as needed. 3. Percocet 1 tablet p.o. every 6 hours as needed. 4. Ventolin 1 puff inhaled 4 times a day. 5. Spiriva 1 capsule inhaled daily. 6. Metoprolol XL 25 mg daily. 7. Avapro 150 mg daily. 8. Aspirin 81mg p.o. daily. ALLERGIES TO MEDICATIONS: Include no known drug allergies. FAMILY HISTORY: Reviewed and noncontributory. Her father had TB. SOCIAL HISTORY: She is a former smoker. Does not drink alcohol. She lives at the [facility]. Surrogate decision maker is her son. REVIEW OF SYSTEMS: There is no documented fever. She denied having any significant weight change. There was no double vision. There is no ear discharge. No rhinorrhea. No sore throat. No thyroid enlargement. She denies any chest pain. There is no orthopnea. No nocturnal dyspnea. There is no abdominal pain. No nausea. No vomiting. No dysuria. No frequency. No loss of consciousness. No pruritus and no skin ulcerations. Review of 14 systems completed, all others negative. PHYSICAL EXAMINATION: Vital Signs: Blood pressure 141/65 with a pulse of 64, respirations 20, O2 sat 94%, and temperature of 98.1. General: At this time, Ms. Hairston is an 81-year-old female patient. She does not appear to be in any acute distress. She is sitting in the ER stretcher. She is awake and she is alert. HEENT: Head atraumatic and normocephalic. Eyes: EOMs intact. Sclerae are anicteric and not pale. Throat: Oral mucosa appears to be moist. No oropharyngeal erythema. Neck: Supple. Heart: Sounds S1, S2. Regular rate and rhythm. She does have a grade 2 to 3 murmur in the aortic listening area. Abdomen was soft, flat, nontender. Bowel sounds present. Extremities: Pulses 2+ throughout. She has swelling and erythema noted to that right lower extremity. Distal CSM checks were intact. Neurologically, she is awake, alert, and oriented x3. Tongue midline. Dispatcher Radio were equal. No gross focal deficits. She does have incision noted to the right hip, which is open to air and is clean , dry, and intact. DIAGNOSTIC STUDIES/LAB DATA: Today reveal WBC of 6.2, RBC of 3.76, hemoglobin 11.2, hematocrit 34, platelet count 237. The INR was 0.99. D-dimer was 511. Sodium 130, potassium of 3.9, chloride of 98, bicarb of 29, BUN of 6, creatinine of 0.68, glucose of 96, calcium 9.4. Total bili 0.7, AST 10, ALT 11 , alk phos 105. Albumin of 3.8. She had a venous Doppler study done earlier today, which showed a probable DVT in one of the peroneal veins in the right calf. Old medical records were reviewed. ASSESSMENT AND PLAN: Ms. Hairston is an 81-year-old female patient coming in to the hospital today again with complaints of an abnormal ultrasound. The hospitalist service was asked to evaluate and consult for admission. My recommendations at this point are: 1. Deep venous thrombosis: I did discuss at length with the son the benefits and disadvantages of both Coumadin and the anticoagulations with the newer medications such as Xarelto, Pradaxa, and Eliquis. After discussing the pros and cons of each medication, he and the patient felt that she would like to try Xarelto which she can go home on. I also offered admission. I explained to them that there is a risk albeit low because this is a below the knee deep venous thrombosis that the clot can embolize to her lungs. Because of the history of patent foramen ovale, could embolize pretty much throughout her whole body. They did not want to stay overnight. Son stated that she is doing well at home. He will go home and even try to help her with her medications. Son states that she does better when she is not in the hospital and because there are no signs of respiratory derangements and she is not tachycardic, I felt that there was a less likelihood that she had embolized and being that the clot is below the calf, I felt that that would be less likely as well. So, the family discussed requested that she go home which I think is appropriate. Obviously, should she develop any new symptoms, I instructed the family to come back such as fevers, chills, chest pain, abdominal pain, or any difficulty with breathing and they were in agreement, and again, admission was offered several times, but they again elected to go home and treat this deep venous thrombosis in the outpatient setting. I suspect the culprit of this is she had recent orthopedic surgery. 2. Chronic obstructive pulmonary disease: Appears to be stable. Follow with her primary. 3. Hypertension: Again stable. Continue meds as prescribed. 4. History of tremors: Follow with her primary. 5. History of recent ORIF, right hip: Continue with Orthopedic followup and aggressive PT. TIME SPENT: Time spent on the consult was 60 minutes; greater than half the time was spent [id number] with the patient spent going over the recommendation for admission and the plan of care, other half time spent implementing the plan of care. I did discuss the plan of care with my attending , Dr. Mera who is in agreement. I also discussed the case with Mely Boone, who was also in agreement and the patient again is going to be discharged home with Clark. KATALINA RODRIGUEZ, DEEDEE [id number]/CPS #: [id number] RANDELL
== END 2016-08-24 19:23 | disposition home or self-care (01) ==
LOC: ED 15:06
DX: I82.4Z3 Acute embolism and thrombosis of unspecified deep veins of distal lower extremity, bilateral (principal); M25.551 Pain in right hip; J44.9 Chronic obstructive pulmonary disease, unspecified; R06.02 Shortness of breath; R60.9 Edema, unspecified; F41.9 Anxiety disorder, unspecified
CPT/HCPCS: 36415; 80053; 85025; 85379; 85610; 99282

== ENCOUNTER 2020-02-02 14:38 | Observation (INO) ==
[2020-02-02] MEDS ORDERED: NS 0.9% 1000 ml BAG 1,000 ML IV ONE (14:47)
[2020-02-02 15:03] LABS: ABS Eosinophils 0.3 10^3/ul (0-0.6); ABS Lymphocytes 1.3 10^3/ul (1.0-4.8); ABS Monocytes 0.5 10^3/ul (0-0.8); ABS Neutrophils 3.3 10^3/ul (1.5-7.7); Eosinophil % 4.8 %; Hematocrit 39 % (35-47); Hemoglobin 13.2 g/dL (12.0-16.0); Lymphocyte % 23.6 %; Mean Corpuscular HGB Conc 34 g/dL (31-36); Mean Corpuscular Hemoglobin 31 pg (27-31); Mean Corpuscular Volume 92 fL (80-97); Mean Platelet Volume 7.4 fL (7.4-10.4); Nucleated Red Blood Cells % 0.2; Platelet Count 175 10^3/uL (150-450); Red Blood Count 4.22 10^6 /uL (3.70-4.87); Red Cell Distribution Width 14 % (10-15); White Blood Count 5.4 10^3/uL (3.5-10.8)
[2020-02-02 15:18] LABS: Activated Partial Thrombo Time 27.7 seconds (26.0-38.0); INR 1.03 (0.82-1.09)
[2020-02-02 15:38] LABS: Albumin 4.1 g/dL (3.2-5.2); Albumin/Globulin Ratio 1.9 (1-3); BUN/Creatinine Ratio 20.6 (8-20); Calcium 9.2 mg/dL (8.6-10.3); EGFR African American 99.3 (>60); Globulin 2.2 g/dL (2-4); HDL Cholesterol 60.6 mg/dL; Potassium 3.8 mmol/L (3.5-5.0); Total Bilirubin 0.6 mg/dL (0.2-1.0); Total Protein 6.3 g/dL (6.4-8.9)
[2020-02-02] MEDS ORDERED: Albuterol/Ipratropium NEB.SOL (2.5/0.5 MG) 3 ML NEB.SOLN INH ONE (15:58)
[2020-02-02] MEDS ORDERED: Senna TAB 8.6 mg TAB PO PRN (15:59)
[2020-02-02 16:03] LABS: Urine Appearance Clear; Urine Bilirubin Negative (Negative); Urine Blood 1+ (Negative); Urine Color Yellow; Urine Glucose Negative (Negative); Urine Ketones Negative (Negative); Urine Nitrite Negative (Negative); Urine Protein Negative (Negative); Urine Specific Gravity 1.009 (1.010-1.030); Urine Urobilinogen Negative (Negative)
[2020-02-02] MEDS ORDERED: Iodixanol (CONTRAST) 320 MG/ML 100 ML SDV IV ONE (16:06)
[2020-02-02 16:22] LABS: Urine Bacteria Absent (Absent); Urine Red Blood Cell Trace(0-2/hpf) (Absent); Urine Squamous Epithelial Cell Present (Absent); Urine White Blood Cell Trace(0-5/hpf) (Absent)
[2020-02-02] MEDS ORDERED: hydrALAZINE 20 mg/ml 1 ML Vial IV IV SLOW PU ONE (16:29)
[2020-02-02] MEDS ORDERED: hydrALAZINE 20 mg/ml 1 ML Vial IV IV SLOW PU PRN (16:33)
[2020-02-02] MEDS ORDERED: Albuterol 2.5mg/3 ml (0.083%) NEB.SOLN INH SCH (17:00)
[2020-02-02] MEDS: Enoxaparin 40 MG/0.4 ML SYR SUBCUT SCH (22:06)
[2020-02-02] MEDS: Mometasone/Formoter 100/5 MDI INH SCH (22:07)
[2020-02-02] MEDS: Albuterol 2.5mg/3 ml (0.083%) NEB.SOLN INH SCH (22:16)
[2020-02-03 07:10] LABS: HDL Cholesterol 56.1 mg/dL
[2020-02-03] MEDS: Mometasone/Formoter 100/5 MDI INH SCH (07:57)
[2020-02-03] MEDS: Albuterol 2.5mg/3 ml (0.083%) NEB.SOLN INH SCH ×3 (07:57→13:41)
[2020-02-03] MEDS ORDERED: SPIRIVA Respimat (tiotropium) 2.5 mcg/inh Inhaler INH SCH (09:00)
[2020-02-03] MEDS ORDERED: Albuterol 2.5mg/3 ml (0.083%) NEB.SOLN INH SCH (13:00)
[2020-02-03 16:01] VITALS: BP 173/77
[2020-02-03] MEDS ORDERED: Magnesium Sulfate IV 1GM/100ML 1 GM/100 ML BAG IV ONE (17:18)
[2020-02-03] MEDS: Enoxaparin 40 MG/0.4 ML SYR SUBCUT SCH (17:45)
[2020-02-03 17:51] LABS: Magnesium 2.1 mg/dL (1.9-2.7); Potassium 3.9 mmol/L (3.5-5.0)
== END 2020-02-03 19:03 | disposition home or self-care (01) ==
LOC: MEDTELE 14:38 → ED 14:38 → MEDTELE 18:39
PROVIDERS: ADMIT Internal Medicine; ATTEND Internal Medicine

== ENCOUNTER 2021-09-08 09:30 | Inpatient (IN) ==
[2021-09-08] MEDS ORDERED: Albuterol 2.5mg/3 ml (0.083%) NEB.SOLN INH ONE (09:49)
[2021-09-08] MEDS ORDERED: Albuterol/Ipratropium NEB.SOL (2.5/0.5 MG) 3 ML NEB.SOLN INH ONE (10:01)
[2021-09-08 10:29] LABS: ABS Lymphocytes 0.6 10^3/ul (1.0-4.8); ABS Monocytes 0.4 10^3/ul (0-0.8); ABS Neutrophils 4.4 10^3/ul (1.5-7.7); Eosinophil % 0.9 %; Hematocrit 35 % (35-47); Hemoglobin 11.8 g/dL (12.0-16.0); Lymphocyte % 11.6 %; Mean Corpuscular HGB Conc 34 g/dL (31-36); Mean Corpuscular Hemoglobin 31 pg (27-31); Mean Corpuscular Volume 92 fL (80-97); Mean Platelet Volume 7.5 fL (7.4-10.4); Platelet Count 163 10^3/uL (150-450); Red Blood Count 3.79 10^6 /uL (3.70-4.87); Red Cell Distribution Width 16 % (10-15); White Blood Count 5.5 10^3/uL (3.5-10.8)
[2021-09-08] MEDS ORDERED: Furosemide 40 mg/4 ml IV VIAL IV SLOW PU ONE (11:10)
[2021-09-08 11:13] LABS: Albumin 3.5 g/dL (3.2-5.2); Albumin/Globulin Ratio 1.8 (1-3); Calcium 8.1 mg/dL (8.6-10.3); Globulin 1.9 g/dL (2-4); Potassium 3.9 mmol/L (3.5-5.0); Total Bilirubin 0.6 mg/dL (0.2-1.0); Total Protein 5.4 g/dL (6.4-8.9); eGFR CKD-EPI 87.4 (>60)
[2021-09-08] MEDS ORDERED: Iodixanol (CONTRAST) 320 MG/ML 100 ML SDV IV ONE (11:30)
[2021-09-08 12:30] LABS: High Sensitivity Troponin 1 Hr 39 pg/mL (<15)
[2021-09-08] MEDS ORDERED: Furosemide 40 mg/4 ml IV VIAL IV ONE (15:37)
[2021-09-08 16:25] LABS: Magnesium 1.9 mg/dL (1.9-2.7)
[2021-09-08 17:01] LABS: PCO2 Arterial 45 mmHg (35-45); PO2 Arterial 115 mmHg (80-100)
[2021-09-08 17:03] LABS: C Reactive Protein 3.25 mg/L (<8.01)
[2021-09-08] MEDS ORDERED: Magnesium Sulfate 2 gm BAG 2 GM/50 ML BAG IVPB ONE (20:12)
[2021-09-08] MEDS ORDERED: Potassium Chlor 20 meq TAB.ER PO ONE (20:15)
[2021-09-08] MEDS: Albuterol HFA INHALER 8 gm MDI INH PRN (20:26)
[2021-09-08] MEDS ORDERED: Enoxaparin 40 MG/0.4 ML SYR SUBCUT SCH (21:00)
[2021-09-09 05:47] LABS: ABS Eosinophils 0.1 10^3/ul (0-0.6); ABS Lymphocytes 0.8 10^3/ul (1.0-4.8); ABS Monocytes 0.6 10^3/ul (0-0.8); ABS Neutrophils 3.5 10^3/ul (1.5-7.7); Eosinophil % 2.9 %; Hematocrit 38 % (35-47); Hemoglobin 12.8 g/dL (12.0-16.0); Lymphocyte % 15.5 %; Mean Corpuscular HGB Conc 34 g/dL (31-36); Mean Corpuscular Hemoglobin 31 pg (27-31); Mean Corpuscular Volume 92 fL (80-97); Mean Platelet Volume 7.7 fL (7.4-10.4); Platelet Count 174 10^3/uL (150-450); Red Blood Count 4.19 10^6 /uL (3.70-4.87); Red Cell Distribution Width 15 % (10-15)
[2021-09-09 06:18] LABS: Calcium 8.9 mg/dL (8.6-10.3); Magnesium 2.3 mg/dL (1.9-2.7); Potassium 4.2 mmol/L (3.5-5.0); eGFR CKD-EPI 84.6 (>60)
[2021-09-09] MEDS: SPIRIVA Respimat (tiotropium) 2.5 mcg/inh Inhaler INH SCH (08:33)
[2021-09-09] MEDS ORDERED: Furosemide 40 mg/4 ml IV VIAL IV ONE (08:37)
[2021-09-10] MEDS: Albuterol HFA INHALER 8 gm MDI INH PRN (02:59)
[2021-09-10 05:02] LABS: Hematocrit 37 % (35-47); Hemoglobin 12.6 g/dL (12.0-16.0); Mean Corpuscular HGB Conc 34 g/dL (31-36); Mean Corpuscular Hemoglobin 31 pg (27-31); Mean Corpuscular Volume 92 fL (80-97); Mean Platelet Volume 7.4 fL (7.4-10.4); Platelet Count 150 10^3/uL (150-450); Red Blood Count 4.02 10^6 /uL (3.70-4.87); Red Cell Distribution Width 15 % (10-15); White Blood Count 5.6 10^3/uL (3.5-10.8)
[2021-09-10 05:13] LABS: Calcium 8.8 mg/dL (8.6-10.3); Magnesium 2.1 mg/dL (1.9-2.7); Potassium 3.9 mmol/L (3.5-5.0); eGFR CKD-EPI 85.3 (>60)
[2021-09-10] MEDS: SPIRIVA Respimat (tiotropium) 2.5 mcg/inh Inhaler INH SCH (09:19)
[2021-09-10] MEDS ORDERED: Furosemide 40 mg/4 ml IV VIAL IV ONE (09:48)
[2021-09-11 06:51] LABS: Calcium 8.8 mg/dL (8.6-10.3); Magnesium 2.2 mg/dL (1.9-2.7); Potassium 4.1 mmol/L (3.5-5.0); eGFR CKD-EPI 86.3 (>60)
[2021-09-11] MEDS: SPIRIVA Respimat (tiotropium) 2.5 mcg/inh Inhaler INH SCH (09:52)
[2021-09-11] MEDS ORDERED: Furosemide 40 mg/4 ml IV VIAL IV ONE (10:44)
[2021-09-11 14:06] VITALS: BP 127/62
== END 2021-09-11 17:10 | disposition home health service (06) | DRG 291 ==
LOC: ED 09:30 → EDHOLD 14:52 → SUATTDRO 14:52 → EDHOLD 15:40 → MEDTELE 16:30
PROVIDERS: ADMIT Student in an Organized Health Care Education/Training Program; ATTEND Hospitalist

== ENCOUNTER 2021-11-12 16:54 | Inpatient (IN) ==
[2021-11-12 17:54] LABS: ABS Eosinophils 0.1 10^3/ul (0-0.6); ABS Lymphocytes 0.8 10^3/ul (1.0-4.8); ABS Monocytes 0.8 10^3/ul (0-0.8); ABS Neutrophils 4.1 10^3/ul (1.5-7.7); Eosinophil % 0.9 %; Hematocrit 37 % (35-47); Lymphocyte % 14.6 %; Mean Corpuscular HGB Conc 32 g/dL (31-36); Mean Corpuscular Hemoglobin 30 pg (27-31); Mean Corpuscular Volume 93 fL (80-97); Mean Platelet Volume 8.3 fL (7.4-10.4); Nucleated Red Blood Cells % 0.1; Platelet Count 184 10^3/uL (150-450); Red Blood Count 3.99 10^6 /uL (3.70-4.87); Red Cell Distribution Width 14 % (10-15); White Blood Count 5.8 10^3/uL (3.5-10.8)
[2021-11-12 18:00] LABS: INR 1.94 (0.86-1.15)
[2021-11-12] MEDS ORDERED: Furosemide 40 mg/4 ml IV VIAL IV SLOW PU ONE (18:28)
[2021-11-12 18:34] LABS: Albumin 3.8 g/dL (3.2-5.2); Albumin/Globulin Ratio 1.9 (1-3); Calcium 8.9 mg/dL (8.6-10.3); Potassium 3.7 mmol/L (3.5-5.0); Total Bilirubin 0.9 mg/dL (0.2-1.0); Total Protein 5.8 g/dL (6.4-8.9); eGFR CKD-EPI 71.9 (>60)
[2021-11-12 18:54] LABS: High Sensitivity Troponin 1 Hr 21 pg/mL (<15)
[2021-11-12 22:01] LABS: Magnesium 2.1 mg/dL (1.9-2.7)
[2021-11-12] MEDS ORDERED: Albuterol HFA INHALER 8 gm MDI INH PRN (22:03)
[2021-11-12] MEDS ORDERED: Potassium Chlor 20 meq TAB.ER PO ONE (22:20)
[2021-11-12] MEDS: SPIRIVA Respimat (tiotropium) 2.5 mcg/inh Inhaler INH SCH (22:55)
[2021-11-12] MEDS: Mometasone/Formoter 100/5 MDI INH SCH (22:55)
[2021-11-13 05:27] LABS: ABS Eosinophils 0.1 10^3/ul (0-0.6); ABS Lymphocytes 0.9 10^3/ul (1.0-4.8); ABS Monocytes 0.7 10^3/ul (0-0.8); Eosinophil % 2.4 %; Hematocrit 35 % (35-47); Hemoglobin 11.2 g/dL (12.0-16.0); Lymphocyte % 19.6 %; Mean Corpuscular HGB Conc 33 g/dL (31-36); Mean Corpuscular Hemoglobin 30 pg (27-31); Mean Corpuscular Volume 92 fL (80-97); Mean Platelet Volume 7.8 fL (7.4-10.4); Nucleated Red Blood Cells % 0.1; Platelet Count 153 10^3/uL (150-450); Red Blood Count 3.74 10^6 /uL (3.70-4.87); Red Cell Distribution Width 14 % (10-15); White Blood Count 4.8 10^3/uL (3.5-10.8)
[2021-11-13 06:42] LABS: Calcium 8.5 mg/dL (8.6-10.3); Potassium 3.6 mmol/L (3.5-5.0); TSH Ultra Thyroid Stim Horm 0.92 mcIU/mL (0.34-5.60); eGFR CKD-EPI 68.8 (>60)
[2021-11-13] MEDS: SPIRIVA Respimat (tiotropium) 2.5 mcg/inh Inhaler INH SCH (07:55)
[2021-11-13] MEDS: Mometasone/Formoter 100/5 MDI INH SCH ×2 (07:55→20:00)
[2021-11-13] MEDS: Furosemide 40 mg/4 ml IV VIAL IV SLOW PU SCH (08:59)
[2021-11-13] MEDS ORDERED: Digoxin IV 0.5 MG/2 ML AMP (0.25 MG/ML) IV SLOW PU ONE ×2 (17:23→22:00)
[2021-11-14 06:15] LABS: Hematocrit 41 % (35-47); Hemoglobin 13.1 g/dL (12.0-16.0); Mean Corpuscular HGB Conc 32 g/dL (31-36); Mean Corpuscular Hemoglobin 30 pg (27-31); Mean Corpuscular Volume 93 fL (80-97); Mean Platelet Volume 8.1 fL (7.4-10.4); Platelet Count 191 10^3/uL (150-450); Red Blood Count 4.34 10^6 /uL (3.70-4.87); Red Cell Distribution Width 14 % (10-15); White Blood Count 7.3 10^3/uL (3.5-10.8)
[2021-11-14 06:43] LABS: Calcium 8.9 mg/dL (8.6-10.3); Potassium 4.3 mmol/L (3.5-5.0); eGFR CKD-EPI 79.1 (>60)
[2021-11-14] MEDS: SPIRIVA Respimat (tiotropium) 2.5 mcg/inh Inhaler INH SCH (07:13)
[2021-11-14] MEDS: Mometasone/Formoter 100/5 MDI INH SCH ×2 (07:13→20:19)
[2021-11-14] MEDS: Furosemide 40 mg/4 ml IV VIAL IV SLOW PU SCH (09:59)
[2021-11-14] MEDS ORDERED: Propofol 0 MG/0 ML BTL ONE (13:46)
[2021-11-14] MEDS ORDERED: fentaNYL 100 mcg/2 ml 50 MCG/ML VIAL ONE ×2 (13:46→15:30)
[2021-11-14] MEDS ORDERED: Lidocaine 2% PF 10 ML AMP ONE ×2 (13:46→15:32)
[2021-11-14] MEDS ORDERED: Midazolam 5 mg/5 ml VIAL 1 mg/ml 5 ml VIAL (5 mg) ONE (13:46)
[2021-11-14] MEDS ORDERED: Phenylephrine IV 10 MG/ML 1 ml VIAL ONE (15:30)
[2021-11-14] MEDS ORDERED: Atropine 1 MG/ML INJ 1 ML VIAL ONE (15:30)
[2021-11-14] MEDS ORDERED: Esmolol 10 MG/ML 10 ML (100 mg) ONE (15:30)
[2021-11-14] MEDS ORDERED: Phenylephrine 40 mcg/mL 10mL (400mcg) SYRINGE ONE (15:31)
[2021-11-14] MEDS ORDERED: Propofol 10 MG/ML 20 ML BTL ONE (15:31)
[2021-11-14] MEDS ORDERED: Glycopyrrolate IV 0.2 MG/ML 1 ML VIAL ONE (15:31)
[2021-11-14] MEDS ORDERED: EPINEPHrine SYR 0.1MG/ML 10 ml SYRINGE ONE (15:32)
[2021-11-15 06:29] LABS: Hematocrit 37 % (35-47); Hemoglobin 12.1 g/dL (12.0-16.0); Mean Corpuscular HGB Conc 33 g/dL (31-36); Mean Corpuscular Hemoglobin 31 pg (27-31); Mean Corpuscular Volume 93 fL (80-97); Mean Platelet Volume 7.9 fL (7.4-10.4); Platelet Count 175 10^3/uL (150-450); Red Blood Count 3.94 10^6 /uL (3.70-4.87); Red Cell Distribution Width 14 % (10-15); White Blood Count 6.8 10^3/uL (3.5-10.8)
[2021-11-15 06:56] LABS: Calcium 8.5 mg/dL (8.6-10.3); Magnesium 1.9 mg/dL (1.9-2.7); Potassium 4.2 mmol/L (3.5-5.0); eGFR CKD-EPI 81.7 (>60)
[2021-11-15] MEDS: Furosemide 40 mg/4 ml IV VIAL IV SLOW PU SCH (07:53)
[2021-11-15] MEDS: Mometasone/Formoter 100/5 MDI INH SCH ×2 (09:43→20:45)
[2021-11-15] MEDS: SPIRIVA Respimat (tiotropium) 2.5 mcg/inh Inhaler INH SCH (09:43)
[2021-11-16] MEDS: SPIRIVA Respimat (tiotropium) 2.5 mcg/inh Inhaler INH SCH (07:29)
[2021-11-16] MEDS: Mometasone/Formoter 100/5 MDI INH SCH ×2 (07:32→19:08)
[2021-11-16] MEDS: Furosemide 40 mg/4 ml IV VIAL IV SLOW PU SCH (10:13)
[2021-11-16] MEDS ORDERED: Potassium Chlor 20 meq TAB.ER PO ONE (11:02)
[2021-11-17 06:36] LABS: Calcium 8.9 mg/dL (8.6-10.3); eGFR CKD-EPI 71.9 (>60)
[2021-11-17 06:38] LABS: Potassium 5.1 mmol/L (3.5-5.0)
[2021-11-17] MEDS: SPIRIVA Respimat (tiotropium) 2.5 mcg/inh Inhaler INH SCH (07:30)
[2021-11-17] MEDS: Mometasone/Formoter 100/5 MDI INH SCH ×2 (07:33→20:33)
[2021-11-17] MEDS: Furosemide 40 mg/4 ml IV VIAL IV SLOW PU SCH (09:26)
[2021-11-18 06:43] LABS: Calcium 8.7 mg/dL (8.6-10.3); Potassium 4.8 mmol/L (3.5-5.0)
[2021-11-18] MEDS: Mometasone/Formoter 100/5 MDI INH SCH (08:45)
[2021-11-18] MEDS: SPIRIVA Respimat (tiotropium) 2.5 mcg/inh Inhaler INH SCH (08:45)
[2021-11-18 12:19] VITALS: BP 128/89
== END 2021-11-18 16:25 | disposition home or self-care (01) | DRG 314 ==
LOC: ED 16:54 → SUATTDRO 21:57 → EDHOLD 21:57 → MEDTELE 11-13 04:22
PROVIDERS: ADMIT Hospitalist; ATTEND Internal Medicine
PROC: O.CATEE (2021-11-14 15:15)

== ENCOUNTER 2021-11-20 16:53 | Observation (INO) ==
[2021-11-20 17:30] LABS: ABS Eosinophils 0.1 10^3/ul (0-0.6); ABS Lymphocytes 1.2 10^3/ul (1.0-4.8); ABS Monocytes 0.7 10^3/ul (0-0.8); ABS Neutrophils 5.1 10^3/ul (1.5-7.7); Eosinophil % 1.3 %; Hematocrit 39 % (35-47); Hemoglobin 12.8 g/dL (12.0-16.0); Lymphocyte % 16.3 %; Mean Corpuscular HGB Conc 33 g/dL (31-36); Mean Corpuscular Hemoglobin 31 pg (27-31); Mean Corpuscular Volume 92 fL (80-97); Mean Platelet Volume 7.9 fL (7.4-10.4); Platelet Count 249 10^3/uL (150-450); Red Blood Count 4.21 10^6 /uL (3.70-4.87); Red Cell Distribution Width 14 % (10-15); White Blood Count 7.1 10^3/uL (3.5-10.8)
[2021-11-20 17:53] LABS: High Sens Troponin Baseline 13 pg/mL (<15)
[2021-11-20] MEDS ORDERED: Furosemide 40 mg/4 ml IV VIAL IV SLOW PU ONE (18:04)
[2021-11-20 18:15] LABS: ALT 31 U/L (7-52); Albumin 3.7 g/dL (3.2-5.2); Albumin/Globulin Ratio 1.5 (1-3); Alkaline Phosphatase 119 U/L (35-149); Blood Urea Nitrogen 21 mg/dL (6-24); CO2 Carbon Dioxide 29 mmol/L (22-32); Chloride 90 mmol/L (101-111); Globulin 2.5 g/dL (2-4); Glucose 127 mg/dL (70-100); Sodium 127 mmol/L (135-145); Total Protein 6.2 g/dL (6.4-8.9); eGFR CKD-EPI 64.9 (>60)
[2021-11-20 19:27] LABS: Anion Gap 8 mmol/L (2-11)
[2021-11-20 19:56] LABS: High Sensitivity Troponin 1 Hr 9 pg/mL (<15)
[2021-11-20 21:08] LABS: Osmolality Serum 271 mOsm/kg (275-295)
[2021-11-20 21:21] LABS: Urine Appearance Clear; Urine Bilirubin Negative (Negative); Urine Blood 1+ (Negative); Urine Color Straw; Urine Glucose Negative (Negative); Urine Ketones Negative (Negative); Urine Nitrite Negative (Negative); Urine Protein Negative (Negative); Urine Specific Gravity 1.003 (1.002-1.030); Urine Urobilinogen Negative (Negative)
[2021-11-20 21:32] LABS: Potassium Redraw 4.4 mmol/L (3.5-5.0)
[2021-11-20 21:50] LABS: Urine Bacteria 1+ (Absent); Urine Red Blood Cell Trace(0-2/hpf) (Absent); Urine Squamous Epithelial Cell Present (Absent); Urine White Blood Cell Trace(0-5/hpf) (Absent)
[2021-11-20 21:57] LABS: Magnesium 2.1 mg/dL (1.9-2.7)
[2021-11-20] MEDS: Mometasone/Formoter 200/5 MDI INH SCH (22:06)
[2021-11-20 22:12] LABS: Urine Creatinine Concentration 8.17 mg/dL
[2021-11-20 22:49] LABS: Urine Osmo 204 mOsm/kg (150-1150)
[2021-11-21 06:14] LABS: ABS Eosinophils 0.1 10^3/ul (0-0.6); ABS Lymphocytes 0.9 10^3/ul (1.0-4.8); ABS Monocytes 0.8 10^3/ul (0-0.8); ABS Neutrophils 3.8 10^3/ul (1.5-7.7); Eosinophil % 1.9 %; Hematocrit 35 % (35-47); Hemoglobin 11.8 g/dL (12.0-16.0); Lymphocyte % 16.3 %; Mean Corpuscular HGB Conc 33 g/dL (31-36); Mean Corpuscular Hemoglobin 31 pg (27-31); Mean Corpuscular Volume 92 fL (80-97); Mean Platelet Volume 7.8 fL (7.4-10.4); Platelet Count 184 10^3/uL (150-450); Red Blood Count 3.85 10^6 /uL (3.70-4.87); Red Cell Distribution Width 14 % (10-15); White Blood Count 5.6 10^3/uL (3.5-10.8)
[2021-11-21 06:42] LABS: Calcium 8.7 mg/dL (8.6-10.3); Potassium 4.3 mmol/L (3.5-5.0); eGFR CKD-EPI 56.2 (>60)
[2021-11-21] MEDS: Mometasone/Formoter 200/5 MDI INH SCH ×2 (07:55→19:34)
[2021-11-22] MEDS: Albuterol HFA INHALER 8 gm MDI INH PRN ×2 (06:25→12:57)
[2021-11-22] MEDS: Mometasone/Formoter 200/5 MDI INH SCH ×2 (07:44→20:22)
[2021-11-22 09:23] LABS: Hematocrit 40 % (35-47); Hemoglobin 12.8 g/dL (12.0-16.0); Mean Corpuscular HGB Conc 32 g/dL (31-36); Mean Corpuscular Hemoglobin 30 pg (27-31); Mean Corpuscular Volume 92 fL (80-97); Mean Platelet Volume 8.2 fL (7.4-10.4); Platelet Count 193 10^3/uL (150-450); Red Blood Count 4.31 10^6 /uL (3.70-4.87); Red Cell Distribution Width 14 % (10-15); White Blood Count 13.6 10^3/uL (3.5-10.8)
[2021-11-22 10:03] LABS: Calcium 8.7 mg/dL (8.6-10.3); Magnesium 1.9 mg/dL (1.9-2.7); Phosphorus 3.6 mg/dL (2.5-5.0); Potassium 4.4 mmol/L (3.5-5.0); eGFR CKD-EPI 81.7 (>60)
[2021-11-22] MEDS ORDERED: Furosemide 40 mg/4 ml IV VIAL IV SLOW PU ONE (14:18)
[2021-11-22 15:09] LABS: PCO2 Arterial 45 mmHg (35-45); PO2 Arterial 72 mmHg (80-100)
[2021-11-23 06:12] LABS: ABS Lymphocytes 0.6 10^3/ul (1.0-4.8); ABS Monocytes 0.7 10^3/ul (0-0.8); ABS Neutrophils 10.4 10^3/ul (1.5-7.7); Hematocrit 40 % (35-47); Hemoglobin 13.3 g/dL (12.0-16.0); Lymphocyte % 5.1 %; Mean Corpuscular HGB Conc 33 g/dL (31-36); Mean Corpuscular Hemoglobin 31 pg (27-31); Mean Corpuscular Volume 92 fL (80-97); Mean Platelet Volume 8.4 fL (7.4-10.4); Platelet Count 190 10^3/uL (150-450); Red Blood Count 4.33 10^6 /uL (3.70-4.87); Red Cell Distribution Width 14 % (10-15); White Blood Count 11.7 10^3/uL (3.5-10.8)
[2021-11-23 06:27] LABS: Magnesium 2.1 mg/dL (1.9-2.7); Potassium 4.6 mmol/L (3.5-5.0); eGFR CKD-EPI 71.9 (>60)
[2021-11-23] MEDS: Mometasone/Formoter 200/5 MDI INH SCH ×2 (08:45→21:54)
[2021-11-23] MEDS: Albuterol HFA INHALER 8 gm MDI INH PRN (14:36)
[2021-11-24 05:52] LABS: ABS Lymphocytes 0.8 10^3/ul (1.0-4.8); ABS Neutrophils 9.9 10^3/ul (1.5-7.7); Eosinophil % 0.2 %; Hematocrit 39 % (35-47); Hemoglobin 12.7 g/dL (12.0-16.0); Lymphocyte % 6.9 %; Mean Corpuscular HGB Conc 33 g/dL (31-36); Mean Corpuscular Hemoglobin 30 pg (27-31); Mean Corpuscular Volume 91 fL (80-97); Mean Platelet Volume 8.6 fL (7.4-10.4); Platelet Count 185 10^3/uL (150-450); Red Blood Count 4.24 10^6 /uL (3.70-4.87); Red Cell Distribution Width 14 % (10-15); White Blood Count 11.7 10^3/uL (3.5-10.8)
[2021-11-24] MEDS: Mometasone/Formoter 200/5 MDI INH SCH (07:13)
[2021-11-24 10:33] VITALS: BP 101/65
[2021-11-24] MEDS: Albuterol HFA INHALER 8 gm MDI INH PRN (10:42)
== END 2021-11-24 13:58 ==
LOC: EDHOLD 16:53 → ED 16:53 → SUATTDRO 20:11 → MEDTELE 22:39
PROVIDERS: ADMIT Internal Medicine; ATTEND Internal Medicine